=== PATIENT | female | born 1995 | race Caucasian/White ===

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

== ENCOUNTER 2017-07-11 03:56 | Emergency (ER) | payer BC ==
[2017-07-11 04:02] VITALS: RESP 18
--- NOTE | 2017-07-11 04:17 | ED ---
General Adult HPI - General Chief complaint: Abdominal Pain Stated complaint: complications-9 wks Time Seen by Provider: 07/11/17 04:06 Source: patient, family, RN notes reviewed Mode of arrival: ambulatory Limitations: no limitations - History of Present Illness Initial comments: Patient is a pleasant 22-year-old female presenting to the emergency department with pelvic cramping. Onset was around 2 AM. Symptoms have been waxing and waning. Discomfort is mild at this time. There is some radiation towards the back. Patient is approximately 9 weeks gravid. No vaginal discharge or vaginal bleeding. 1 para 0. No urinary symptoms. No vomiting. No fever. - Related Data Home Medications Medication Instructions Recorded Confirmed No Known Home Medications [No 07/11/17 07/11/17 Known Home Medications] Allergies Allergy/AdvReac Type Severity Reaction Status Date / Time No Known Allergies Allergy Verified 07/11/17 04:02 Review of Systems ROS Statement: Those systems with pertinent positive or pertinent negative responses have been documented in the HPI. ROS Other: All systems not noted in ROS Statement are negative. Constitutional: Denies: fever Eyes: Denies: eye pain ENT: Denies: ear pain Respiratory: Denies: cough Cardiovascular: Denies: chest pain Endocrine: Denies: fatigue Gastrointestinal: Reports: abdominal pain (Pelvic pain) Genitourinary: Denies: dysuria Musculoskeletal: Denies: back pain Skin: Denies: rash Past Medical History Past Medical History: No Reported History Additional Past Medical History / Comment(s): ovarian cysts History of Any Multi-Drug Resistant Organisms: None Reported Past Surgical History: No Surgical Hx Reported Past Psychological History: No Psychological Hx Reported Smoking Status: Current every day smoker Past Alcohol Use History: Occasional Past Drug Use History: None Reported General Exam Limitations: no limitations General appearance: alert, in no apparent distress Head exam: Present: atraumatic Eye exam: Present: normal appearance Neck exam: Present: normal inspection Respiratory exam: Present: normal lung sounds bilaterally Cardiovascular Exam: Present: regular rate, normal rhythm Expanded Peripheral pulses: 2+: Dorsalis Pedis (R), Dorsalis Pedis (L) GI/Abdominal exam: Present: soft. Absent: tenderness External exam: Present: normal external exam (RN Zoie is present.) Speculum exam: Present: cervical discharge (Mild white discharge) By manual exam: Present: normal by manual exam. Absent: cervical motion tenderness, adnexal tenderness, adnexal mass Extremities exam: Present: normal inspection. Absent: pedal edema, calf tenderness Neurological exam: Present: alert Psychiatric exam: Present: normal affect, normal mood Skin exam: Present: normal color Course Vital Signs 07/11/17 03:58 Temperature 97.8 F Pulse Rate 87 Respiratory 18 Rate Blood Pressure 117/87 O2 Sat by Pulse 100 Oximetry Medical Decision Making - Medical Decision Making Patient reevaluated and updated. - Lab Data Result diagrams: 07/11/17 04:48 07/11/17 04:48 Lab Results 07/11/17 07/11/17 07/11/17 Range/Units 04:48 04:48 04:48 WBC 9.8 (4.0-11.0) k/uL RBC 4.25 (3.80-5.40) m/uL Hgb 12.6 (11.4-16.0) gm/dL Hct 38.6 (34.0-46.0) % MCV 90.7 (80.0-100.0) fL MCH 29.6 (25.0-35.0) pg MCHC 32.6 (31.0-37.0) g/dL RDW 13.1 (11.5-15.5) % Plt Count 216 (150-450) k/uL Neutrophils % 66 % Lymphocytes % 25 % Monocytes % 5 % Eosinophils % 2 % Basophils % 1 % Neutrophils # 6.5 (1.3-7.7) k/uL Lymphocytes # 2.5 (1.0-4.8) k/uL Monocytes # 0.4 (0-1.0) k/uL Eosinophils # 0.2 (0-0.7) k/uL Basophils # 0.1 (0-0.2) k/uL PT (9.0-12.0) sec INR (<1.2) APTT (22.0-30.0) sec Sodium 140 (137-145) mmol/L Potassium 3.6 (3.5-5.1) mmol/L Chloride 106 (98-107) mmol/L Carbon Dioxide 22 (22-30) mmol/L Anion Gap 12 mmol/L BUN 7 (7-17) mg/dL Creatinine 0.70 (0.52-1.04) mg/dL Est GFR (MDRD) Af Amer >60 (>60 ml/min/1.73 sqM) Est GFR (MDRD) Non-Af >60 (>60 ml/min/1.73 sqM) Glucose 88 (74-99) mg/dL Calcium 9.9 (8.4-10.2) mg/dL Total Bilirubin 0.9 (0.2-1.3) mg/dL AST 19 (14-36) U/L ALT 29 (9-52) U/L Alkaline Phosphatase 61 (38-126) U/L Total Protein 7.3 (6.3-8.2) g/dL Albumin 4.5 (3.5-5.0) g/dL Trichomonas Ag (Rapid) (Negative) Blood Type O Positive Blood Type Recheck No 07/11/17 07/11/17 Range/Units 04:48 04:48 WBC (4.0-11.0) k/uL RBC (3.80-5.40) m/uL Hgb (11.4-16.0) gm/dL Hct (34.0-46.0) % MCV (80.0-100.0) fL MCH (25.0-35.0) pg MCHC (31.0-37.0) g/dL RDW (11.5-15.5) % Plt Count (150-450) k/uL Neutrophils % % Lymphocytes % % Monocytes % % Eosinophils % % Basophils % % Neutrophils # (1.3-7.7) k/uL Lymphocytes # (1.0-4.8) k/uL Monocytes # (0-1.0) k/uL Eosinophils # (0-0.7) k/uL Basophils # (0-0.2) k/uL PT 9.9 (9.0-12.0) sec INR 1.0 (<1.2) APTT 23.6 (22.0-30.0) sec Sodium (137-145) mmol/L Potassium (3.5-5.1) mmol/L Chloride (98-107) mmol/L Carbon Dioxide (22-30) mmol/L Anion Gap mmol/L BUN (7-17) mg/dL Creatinine (0.52-1.04) mg/dL Est GFR (MDRD) Af Amer (>60 ml/min/1.73 sqM) Est GFR (MDRD) Non-Af (>60 ml/min/1.73 sqM) Glucose (74-99) mg/dL Calcium (8.4-10.2) mg/dL Total Bilirubin (0.2-1.3) mg/dL AST (14-36) U/L ALT (9-52) U/L Alkaline Phosphatase (38-126) U/L Total Protein (6.3-8.2) g/dL Albumin (3.5-5.0) g/dL Trichomonas Ag (Rapid) Negative (Negative) Blood Type Blood Type Recheck - Radiology Data Radiology results: image reviewed (Ultrasound shows single live IUP. 17 weeks 1 day. Heart rate 151.) Disposition Clinical Impression: Threatened miscarriage Disposition: HOME SELF-CARE Condition: Stable Instructions: Threatened Miscarriage (ED) Additional Instructions: Please follow-up with your PROBATION SUPERVISOR in the next day or 2 for recheck. Please also follow-up with primary care physician. Return for increased pain, bleeding , worsening symptoms or other concerns. Referrals: Keli Aguilar MD [Primary Care Provider] - 1-2 days Lisha Escudero DO [Doctor of Osteopathic Medicine] - 1-2 days Time of Disposition: 06:20
[2017-07-11 05:09] LABS: Basophils # (A) 0.1 k/uL (0-0.2); Basophils % (A) 1 %; Eosinophils # (A) 0.2 k/uL (0-0.7); Eosinophils % (A) 2 %; HCT 38.6 % (34.0-46.0); HGB 12.6 gm/dL (11.4-16.0); Lymphocytes # (A) 2.5 k/uL (1.0-4.8); Lymphocytes % (A) 25 %; MCH 29.6 pg (25.0-35.0); MCHC 32.6 g/dL (31.0-37.0); MCV 90.7 fL (80.0-100.0); Mean Platelet Volume 8.3; Monocytes # (A) 0.4 k/uL (0-1.0); Monocytes % (A) 5 %; Neutrophils # (A) 6.5 k/uL (1.3-7.7); Neutrophils % (A) 66 %; Platelet Count 216 k/uL (150-450); RBC 4.25 m/uL (3.80-5.40); RDW 13.1 % (11.5-15.5); WBC 9.8 k/uL (4.0-11.0)
[2017-07-11 05:17] LABS: Partial Thromboplastin Time 23.6 sec (22.0-30.0); Prothrombin Time 9.9 sec (9.0-12.0)
[2017-07-11 05:22] LABS: ALT 29 U/L (9-52); AST 19 U/L (14-36); Albumin 4.5 g/dL (3.5-5.0); Alkaline Phosphatase 61 U/L (38-126); Anion Gap 12 mmol/L; Blood Urea Nitrogen 7 mg/dL (7-17); Calcium 9.9 mg/dL (8.4-10.2); Carbon Dioxide 22 mmol/L (22-30); Chloride 106 mmol/L (98-107); Glucose 88 mg/dL (74-99); Potassium 3.6 mmol/L (3.5-5.1); Sodium 140 mmol/L (137-145); Total Bilirubin 0.9 mg/dL (0.2-1.3); Total Protein 7.3 g/dL (6.3-8.2)
--- NOTE | 2017-07-11 06:04 | US ---
EXAM: US Ob/Endovag CLINICAL HISTORY: Reason: pain TECHNIQUE: Real-time ultrasound of the ob/endovag with image documentation. COMPARISON: No relevant prior studies available. FINDINGS: Single live IUP. [place]-rump length corresponds to EGA 7 weeks 1 day. heart rate 151 BPM Suspected corpus luteal cyst left ovary. Small ovarian follicles. No pelvic free fluid is seen. IMPRESSION: Single live IUP, as above.
[2017-07-11 06:45] VITALS: BP 120/56; PULSE 81; TEMP 98.7
[2017-07-12 15:47] LABS: Chlamydia trachomatis rRNA Not detected (Not detected); Neisseria gonorrhoeae rRNA Not detected (Not detected)
== END 2017-07-11 06:45 | disposition home or self-care (01) ==
LOC: EC 03:56
DX: O20.0 Threatened abortion (principal); O99.331 Smoking (tobacco) complicating pregnancy, first trimester; F17.200 Nicotine dependence, unspecified, uncomplicated; Z3A.09 9 weeks gestation of pregnancy
CPT/HCPCS: 36415; 76801; 76817; 80053; 84702; 85025; 85610; 85730; 86900; 86901; 87070; 87205; 87491; 87591; 87808; 99284

== ENCOUNTER 2018-02-12 15:54 | Inpatient (IN) | payer BC ==
--- NOTE | 2018-02-12 17:33 | US ---
EXAMINATION TYPE: US OB >= 14 wk fetus DATE OF EXAM: 02/12/2018 COMPARISON: None CLINICAL HISTORY: Fall; patient fell and landed on the abdomen. TECHNIQUE: Transabdominal (TA) GESTATIONAL AGE / DATING Physician Established: (38 weeks/1 days) EDC: 02/25/2018 Dates by Current Scan: (36 weeks/0 days) EDC: 03/12/2018 SURVEY IUP: Single PLACENTA: Fundal/Posterior PREVIA: No Previa RANJEET: 14.7 cm Normal Amniotic fluid volume appropriate. Mild debris noted within amniotic fluid. CERVICAL LENGTH (transabdominal: norm > 3.0cm): 3.2 cm BIOMETRY PRESENTATION: Breech LIE: Longitudinal BPD: 8.9 cm 36 weeks / 1 days HC: 32.5 cm 36 weeks / 6 days AC: 33.2 cm 37 weeks / 1 days FL: 7.0 cm 35 weeks / 5 days ESTIMATED WEIGHT IN GRAMS: 3985 grams ESTIMATED WEIGHT IN LBS/OZ: 6 lbs. 9 oz. WEIGHT PERCENTAGE BASED ON ESTABLISHED DATES: 25.0% HC/AC: 1.0 Normal FL/AC: 20.9 Normal HEART RATE: 157 bpm RHYTHM: Normal IMPRESSION: SINGLE LIVE IUP MEASURING 36 WEEKS 0 DAYS.
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
[2018-02-12 18:22] VITALS: BMI 27.1
[2018-02-12] MEDS: LACTATED RINGERS 1,000 ML IV SCH (22:38)
[2018-02-12] MEDS: ACETAMINOPHEN TAB 325 MG TAB PO PRN (22:51)
[2018-02-13] MEDS: LACTATED RINGERS 1,000 ML IV SCH (00:04)
[2018-02-13 01:33] LABS: Basophils % (A) 0 %; Eosinophils # (A) 0.2 k/uL (0-0.7); Eosinophils % (A) 1 %; HCT 37.8 % (34.0-46.0); HGB 12.6 gm/dL (11.4-16.0); Lymphocytes # (A) 1.8 k/uL (1.0-4.8); Lymphocytes % (A) 14 %; MCH 29.7 pg (25.0-35.0); MCHC 33.3 g/dL (31.0-37.0); MCV 89.2 fL (80.0-100.0); Mean Platelet Volume 9.4; Monocytes # (A) 0.7 k/uL (0-1.0); Monocytes % (A) 5 %; Neutrophils # (A) 9.9 k/uL (1.3-7.7); Neutrophils % (A) 78 %; Platelet Count 189 k/uL (150-450); RBC 4.24 m/uL (3.80-5.40); RDW 12.8 % (11.5-15.5); WBC 12.6 k/uL (3.8-10.6)
[2018-02-13] MEDS: ACETAMINOPHEN TAB 325 MG TAB PO PRN (04:51)
--- NOTE | 2018-02-13 06:07 | P.PN ---
Progress Note - Text Progress Note Date: 02/13/18 Patient had a reactive heart rate tracings overnight over had 1 episode of a bradycardic episode approximately 1 hour ago and then most recently had another episode. At this time heart tones are reactive. Plan at this time is to continue close observation and most likely will proceed with induction of labor this morning. Patient does understand that if the baby were to have recurrent episodes of bradycardia during labor she would require section for delivery.
[2018-02-13] MEDS ORDERED: TERBUTALINE 1 MG/ML VIAL SQ PRN (07:25)
[2018-02-13] MEDS ORDERED: CARBOPROST TROMETHAMINE 250 MCG/ML 1 ML AMP IM PRN (07:25)
[2018-02-13] MEDS ORDERED: METHYLERGONOVINE 0.2 MG/ML 1 ML AMP IM PRN (07:25)
[2018-02-13] MEDS ORDERED: LIDOCAINE 1% (PF) 10 MG/ML (30 ML SDV) SQ PRN (07:25)
[2018-02-13] MEDS ORDERED: OXYTOCIN 10 UNIT/ML 1 ML VIAL IM PRN (07:25)
[2018-02-13] MEDS ORDERED: OXYTOCIN 20 UNITS/1000 ML NS 1,000 ML IV SCH ×2 (07:30→11:47)
[2018-02-13] MEDS ORDERED: ceFAZolin IN SWFI 2 GM/20 ML SYRINGE IVP STA (08:47)
[2018-02-13] MEDS ORDERED: CITRIC ACID-SODIUM CITRATE 15 ML CUP PO ONE (08:47)
[2018-02-13] MEDS ORDERED: OXYTOCIN 10 UNIT/ML 1 ML VIAL ONE (08:49)
[2018-02-13] MEDS ORDERED: MORPHINE SULFATE (PF) 0.3 MG/0.3 ML SYR ONE (08:49)
[2018-02-13] MEDS ORDERED: DEXAMETHASONE SOD PHOS (MDV) 100 MG/10 ML VIAL ONE (08:49)
[2018-02-13] MEDS ORDERED: KETOROLAC 30 MG/ML 1 ML VIAL ONE (08:49)
[2018-02-13] MEDS ORDERED: HYDROmorphone (PF) 1 MG/ML ONE (08:49)
[2018-02-13] MEDS ORDERED: ONDANSETRON 4 MG/2 ML VIAL ONE (08:49)
[2018-02-13] MEDS ORDERED: NALBUPHINE 10 MG/ML VIAL (10ML MDV) ONE (08:49)
[2018-02-13] MEDS ORDERED: ONDANSETRON 4 MG/2 ML VIAL IVP PRN ×2 (09:10→11:47)
[2018-02-13] MEDS ORDERED: diphenhydrAMINE 50 MG/ML 1 ML VIAL IVP PRN ×3 (09:10→11:47)
[2018-02-13] MEDS ORDERED: NALOXONE 0.4 MG/ML 1 ML VIAL IV PRN ×2 (09:10→11:47)
[2018-02-13] MEDS ORDERED: MORPHINE SULFATE 4 MG/ML SYRINGE IVP PRN (09:10)
--- NOTE | 2018-02-13 09:26 | P.OP ---
Date of Procedure: 02/13/18 Preoperative Diagnosis: 1. Intrauterine at 38-2/7 weeks. 2. Nonreassuring heart tones. 3. Status post fall. Postoperative Diagnosis: Same Procedure(s) Performed: Primary low transverse section Anesthesia: spinal (Duramorph) Surgeon: Lisha Escudero Electronics Warfare Technician #1: Navin Beal Estimated Blood Loss (ml): 500 Pathology: other (Placenta) Condition: stable Disposition: floor Indications for Procedure: This is a 23-year-old female 1 para 0 at 38-2/7 weeks who presented to labor and delivery last evening after a fall at home. She hit directly on her abdomen. While in triage she was noted to have a deceleration. Ultrasound was performed and no abnormalities were visualized. She was admitted for prolonged monitoring. She did have one further deceleration that lasted about 2 minutes early this morning and then another one lasting about 5 minutes at approximate 6 AM. heart tones did return to normal and the decision was made to proceed with induction of labor. Oxytocin was started but water was not broken yet. She then had another spontaneous deceleration lasting about 2 minutes. At this point in time the oxytocin was stopped and the decision was made to proceed with primary section due to nonreassuring heart tones. I have discussed the risks, benefits, and alternative therapies for the above- mentioned procedure and for both sedation/anesthesia as well as necessary blood products administration, if indicated, as they pertain to this patient. The patient has indicated her understanding and acceptance of the risks and procedures discussed. Operative Findings: A viable male infant is noted in the occiput anterior lie with scores of 8 at 1 minute and 9 at 5 minutes and infant weight of 7 lbs. 3 oz. Normal uterus tubes and ovaries are noted. No abnormalities were visualized on the placenta. Description of Procedure: The patient is taken to the operating room where she is placed in the dorsal supine position with leftward tilt after spinal Duramorph anesthesia is given. She is prepped and draped in the normal sterile fashion. Skin was tested and found to be adequately anesthetized. A Pfannenstiel skin incision was made with a scalpel. A second knife was used to carry the incision down to the underlying layer of fascia. The fascia was nicked in the midline with a scalpel and then extended laterally bilaterally with Saunders scissors. The anterior lip of the fascia was grasped with 2 Augustin clamps and then dissected off the underlying rectus muscle in the midline with Saunders scissors. The inferior aspect of the fascial incision was grasped with 2 Augustin clamps and dissected off the underlying rectus muscle and the midline with Saunders scissors. Next the peritoneum layer was tented up with 2 hemostats and then entered sharply with the scalpel. The incision is extended superiorly and inferiorly with Metzenbaum scissors. Next a DeLee retractor is placed. The vesicouterine peritoneum is entered sharply with Metzenbaum scissors and extended laterally bilaterally with Metzenbaum scissors and then the bladder flap is pushed inferiorly. The lower uterine segment is incised in transverse fashion with the scalpel and then bluntly entered with a hemostat. Clear fluid is noted. The incision was then extended laterally bilaterally with 2 fingers. Next the 's head is delivered through the incision. Nose and mouth are bulb suctioned. The remainder of the is easily delivered and placed on mother 's abdomen. Cord is clamped and cut. is taken to warmer by nursing staff. Uterine fundus is gently massaged and placenta is delivered manually. Uterus is exteriorized and cleared of all clots and debris. Uterine incision is closed with 0 Vicryl suture in a running locked fashion. A second layer of 0 Vicryl suture is used in a running fashion for hemostasis. Once adequate hemostasis as assured, the vesicouterine peritoneum is reapproximated with 2-0 Vicryl suture in a running fashion. Posterior cul-de-sac is suctioned of all clots and debris. Uterus is returned to the abdomen. Incision is noted to be hemostatic. Peritoneal layer is closed with 0 Vicryl suture in a running fashion. Muscle layer is reapproximated with 0 Vicryl suture in interrupted fashion. Fascia layer is then closed with 0 PDS suture with 2 sutures meeting in the midline and the knots buried in either side and in the midline. The subcutaneous tissue was then closed with 2-0 Vicryl suture. Skin layer was then closed with bebe. All sponge and needle counts are correct. The patient is taken to recovery room in stable condition.
[2018-02-13] MEDS ORDERED: SIMETHICONE 80 MG CHEWABLE PO PRN (11:47)
[2018-02-13] MEDS ORDERED: HYDROcodone/APAP 5-325MG 1 EACH TAB PO PRN (11:47)
[2018-02-13] MEDS ORDERED: HYDROcodone/APAP 7.5-325MG 1 EACH TAB PO PRN (11:47)
[2018-02-13] MEDS ORDERED: diphenhydrAMINE 50 MG CAP PO PRN (11:47)
[2018-02-13] MEDS ORDERED: ZOLPIDEM 5 MG TAB PO PRN (11:47)
[2018-02-13] MEDS ORDERED: LACTATED RINGERS 1,000 ML IV SCH (11:47)
[2018-02-13] MEDS ORDERED: diphenhydrAMINE 25 MG CAP PO PRN (11:47)
[2018-02-13] MEDS ORDERED: METOCLOPRAMIDE 5 MG/ML 2 ML VIAL IVP PRN (11:47)
[2018-02-13] MEDS: KETOROLAC 30 MG/ML 1 ML VIAL IVP PRN (20:35)
[2018-02-13] MEDS: SENNOSIDES-DOCUSATE SODIUM 1 EACH TAB PO SCH (20:36)
[2018-02-14] MEDS: KETOROLAC 30 MG/ML 1 ML VIAL IVP PRN (04:16)
[2018-02-14 06:11] LABS: Basophils % (A) 0 %; Eosinophils # (A) 0.1 k/uL (0-0.7); Eosinophils % (A) 1 %; HCT 30.9 % (34.0-46.0); HGB 10.2 gm/dL (11.4-16.0); Lymphocytes # (A) 2.1 k/uL (1.0-4.8); Lymphocytes % (A) 15 %; MCH 29.6 pg (25.0-35.0); MCHC 33.2 g/dL (31.0-37.0); MCV 89.3 fL (80.0-100.0); Mean Platelet Volume 8.2; Monocytes # (A) 0.6 k/uL (0-1.0); Monocytes % (A) 5 %; Neutrophils # (A) 11.2 k/uL (1.3-7.7); Neutrophils % (A) 79 %; Platelet Count 144 k/uL (150-450); RBC 3.46 m/uL (3.80-5.40); RDW 12.8 % (11.5-15.5); WBC 14.2 k/uL (3.8-10.6)
--- NOTE | 2018-02-14 06:49 | P.PN ---
Progress Note - Text Progress Note Date: 02/14/18 23-year-old female status post section with Duramorph spinal. Patient doing well no complications. Ambulating well. No motor/sensory deficits. VAS is 2/10. No pruritus
[2018-02-14] MEDS: SENNOSIDES-DOCUSATE SODIUM 1 EACH TAB PO SCH ×2 (08:05→20:21)
--- NOTE | 2018-02-14 08:37 | P.PNOBGPC ---
Subjective - Subjective Principal diagnosis: Status post primary section postoperative day #1 Interval history: Patient is doing well. She is an bleeding. She is passing flatus but no bowel movement yet. Pain is well-controlled. Lochia is decreasing. She is bottle feeding. Patient reports: Reports appetite normal, Reports voiding normally, Reports pain well controlled, Reports ambulating normally : doing well, bottle feeding Objective - Vital Signs Latest vital signs: Vital Signs Temp Pulse Resp BP Pulse Ox 02/14/18 06:00 14 02/14/18 05:00 97 02/14/18 04:00 98.1 F 68 14 104/58 95 02/14/18 02:00 14 02/14/18 01:00 97 02/14/18 00:00 98.2 F 72 16 99/54 97 02/13/18 22:00 16 02/13/18 21:00 96 02/13/18 20:00 98.2 F 66 16 111/57 96 02/13/18 18:00 16 02/13/18 17:00 98 02/13/18 16:45 97.5 F L 72 16 115/62 98 02/13/18 13:58 98.2 F 72 16 115/70 98 02/13/18 11:47 80 16 110/64 02/13/18 11:17 65 16 115/62 97 02/13/18 10:45 97.0 F L 64 16 107/61 02/13/18 10:32 77 16 107/56 98 02/13/18 10:17 72 16 102/51 98 02/13/18 10:10 16 98 02/13/18 10:02 70 16 114/64 97 02/13/18 09:47 98.3 F 61 16 112/62 98 Intake and Output 02/13/18 02/14/18 02/14/18 22:59 06:59 14:59 Output Total 4150 Balance -4150 Output: Urine 4150 Other: # Voids 1 1 - Exam Extremities: Present: normal Abdomen: Present: normal appearance, soft (Positive bowel sounds 4). Absent: distention, tenderness Incision: Present: normal, dry, intact Uterus: Present: normal, firm. Absent: tenderness - Labs Labs: Abnormal Lab Results - Last 24 Hours (Table) 02/14/18 Range/Units 05:22 WBC 14.2 H (3.8-10.6) k/uL RBC 3.46 L (3.80-5.40) m/uL Hgb 10.2 L (11.4-16.0) gm/dL Hct 30.9 L (34.0-46.0) % Plt Count 144 L (150-450) k/uL Neutrophils # 11.2 H (1.3-7.7) k/uL Assessment and Plan Assessment: Status post primary low transverse section postoperative day #1 Plan: Continue with postoperative care today. Anticipate probable discharge home tomorrow.
[2018-02-14] MEDS ORDERED: MEASLES-MUMPS-RUBELLA VACC/PF 12,500 UNIT/0.5 ML VIAL SQ ONE (10:37)
[2018-02-14] MEDS: IBUPROFEN 600 MG TAB PO PRN ×3 (12:03→23:49)
[2018-02-14] MEDS: ACETAMINOPHEN TAB 325 MG TAB PO PRN (20:22)
[2018-02-15] MEDS: ACETAMINOPHEN TAB 325 MG TAB PO PRN (04:01)
[2018-02-15] MEDS: SENNOSIDES-DOCUSATE SODIUM 1 EACH TAB PO SCH (08:46)
[2018-02-15 11:02] VITALS: BP 120/65; PULSE 81; RESP 18; TEMP 98.3
--- NOTE | 2018-02-15 11:38 | P.DS ---
Providers Date of admission: 02/13/18 06:40 Expected date of discharge: 02/15/18 Attending physician: Lisha Escudero Primary care physician: Stated None Hospital Course: This is a 23-year-old female 1 para 0 who presented at 38 and one sevenths weeks after a fall and hit to her abdomen. She was monitored overnight and was found to have some spontaneous decelerations. Therefore she began induction of labor and shortly after the oxytocin was started she began having more decelerations and the decision was made to proceed with section. She underwent a primary low transverse section on 02/13/2018 and delivered a viable male with scores of 8 at 1 minute and 9 at 5 minutes and weight of 7 lbs. 3 oz. Her course was uncomplicated. Lochia is decreasing. Pain is fairly well controlled with ibuprofen and Viola. She is bottle feeding. She is passing flatus and bowel movement. Vital signs are stable. Abdomen is soft with fundus firm and nontender. Positive bowel sounds 4 are noted. Incision is clean dry and intact. Extremities show negative Homans. Impression is status post primary section postoperative day #2. Plan is to discharge home today. She will be given a prescription for ibuprofen and a 3 day supply of Viola. She will sign the start narcotic form. She is advised to follow up in the office in approximately 1 week for a postoperative check and in 6 weeks for a check. She is advised to call the office if she has any further questions or concerns prior to her next appointment time. Procedures: Oxytocin induction of labor Primary low transverse section for delivery of a viable male infant on 02/13/2018 Patient Condition at Discharge: Stable Plan - Discharge Summary New Discharge Prescriptions: New HYDROcodone/APAP 5-325MG [Viola 5-325] 1 each PO Q4HR PRN #18 tab PRN Reason: Moderate Pain Ibuprofen [Motrin] 600 mg PO Q6HR PRN #60 tab PRN Reason: Mild Pain Or Fever >= 100.5 Continue Pnv No.95/Ferrous Fum/Folic AC [ Multivitamin Tablet] 1 each PO DAILY No Action Ferrous Sulfate [Slow Fe] 142 mg PO DAILY Discharge Medication List Ferrous Sulfate [Slow Fe] 142 mg PO DAILY 02/12/18 [History] Pnv No.95/Ferrous Fum/Folic AC [ Multivitamin Tablet] 1 each PO DAILY [History] HYDROcodone/APAP 5-325MG [Viola 5-325] 1 each PO Q4HR PRN #18 tab 02/15/18 [Rx] Ibuprofen [Motrin] 600 mg PO Q6HR PRN #60 tab 02/15/18 [Rx] Follow up Appointment(s)/Referral(s): Lisha Escudero DO [Doctor of Osteopathic Medicine] - 1 Week Activity/Diet/Wound Care/Special Instructions: Instructions 1. Do not begin any exercise program for 3 weeks. 2. Do not resume sexual relations for 3 weeks or longer if uncomfortable. 3. You may take tub baths or showers at any time. 4. You may use tampons if desired after 3 weeks. 5. Keep the area of episiotomy (stitches) clean and dry. 6. If you are not nursing, wear a good fitting, supportive bra during the day and limit fluid intake for at least 1 week to prevent breast engorgement. 7. Call the office, [phone], within the next week to make appointment for your 6 week checkup if it has not already been made. 8. Report any of the following occurrences to the doctor promptly: a. Heavy, excessive bleeding b. Chills, fever c. Burning or frequency of urination d. Pain or redness and breasts if nursing e. Increasing pain or swelling in episiotomy (stitches). In addition to the above instructions, the following additional should be followed: 1. No heavy lifting or straining (exercising) until after 6 week checkup. 2. Keep abdominal incision clean and dry: You may wear a dressing if more comfortable. 3. Make office appointment for 10 days after going home or as instructed by her doctor. Discharge Disposition: HOME SELF-CARE
[2018-02-15] MEDS: IBUPROFEN 600 MG TAB PO PRN (13:35)
== END 2018-02-15 14:15 | disposition home or self-care (01) | DRG 766 ==
LOC: FBPOP 15:54 → 4FBP 17:05 → OBSVTOIN 02-13 06:40
PROVIDERS: ADMIT Obstetrics & Gynecology; ATTEND Obstetrics & Gynecology
PROC: 3E033VJ Introduction of Other Hormone into Peripheral Vein, Percutaneous Approach (ICD-10-PCS; principal; 2018-02-13 08:50)
PROC: 10D00Z1 Extraction of Products of Conception, Low, Open Approach (ICD-10-PCS; principal; 2018-02-13 08:50)
DX: O76 Abnormality in fetal heart rate and rhythm complicating labor and delivery (principal); W01.0XXA Fall on same level from slipping, tripping and stumbling without subsequent striking against object, initial encounter; Y92.009 Unspecified place in unspecified non-institutional (private) residence as the place of occurrence of the external cause; Z3A.38 38 weeks gestation of pregnancy; Z87.891 Personal history of nicotine dependence; Z37.0 Single live birth
CPT/HCPCS: 59025; 76805; 85025; 86850; 86900; 86901; 87340; 88307; 90707; 99215

== ENCOUNTER 2018-07-19 15:55 | Emergency (ER) | payer BC ==
[2018-07-20 04:00] LABS: Appearance,Urine Clear (Clear); Bacteria,Urine Occasional /hpf; Bilirubin,Urine Negative (Negative); Blood,Urine Negative (Negative); Color,Urine Yellow; Glucose,Urine (UA) Negative (Negative); Ketones,Urine Negative (Negative); Leukocyte Esterase,Urine Moderate (Negative); Mucus,Urine Occasional /hpf; Nitrite,Urine Negative (Negative); PH, Urine 5.5 (5.0-8.0); Protein,Urine Trace (Negative); RBC,Urine 4 /hpf (0-5); Specific Gravity,Urine 1.026 (1.001-1.035); Squamous Epithelial Cell,Urine 2 /hpf (0-4); Urobilinogen,Urine <2.0 mg/dL (<2.0); WBC,Urine 2 /hpf (0-5)
[2018-07-20 07:03] LABS: Basophils # (A) 0.1 k/uL (0-0.2); Basophils % (A) 0 %; Eosinophils # (A) 0.2 k/uL (0-0.7); Eosinophils % (A) 1 %; HCT 37.4 % (34.0-46.0); HGB 12.4 gm/dL (11.4-16.0); Lymphocytes # (A) 2.2 k/uL (1.0-4.8); Lymphocytes % (A) 18 %; MCH 30.1 pg (25.0-35.0); MCHC 33.3 g/dL (31.0-37.0); MCV 90.3 fL (80.0-100.0); Monocytes # (A) 0.4 k/uL (0-1.0); Monocytes % (A) 3 %; Neutrophils % (A) 75 %; Platelet Count 208 k/uL (150-450); RBC 4.14 m/uL (3.80-5.40); RDW 12.5 % (11.5-15.5); WBC 11.9 k/uL (3.8-10.6)
--- NOTE | 2018-07-20 10:12 | US ---
EXAMINATION TYPE: US abdomen APPY DATE OF EXAM: 07/19/2018 COMPARISON: NONE CLINICAL HISTORY: 23-year-old female right lower quadrant pain for 2 days and elevated WBC. 6 weeks p regnant. APPENDIX Cylindrical structure adjacent to the iliac vessels. This appears hypoechoic and is noncompressible b ut measures only 6 to 7 mm in caliber which is upper limits of normal to borderline thickened if this represents the appendix. Is the appendix seen in its entirety from the proximal cecum to distal end- no Is the appendix compressible- No Does the appendix wall appear hypervascular- Some anterior wall vascularity present Is an appendicolith present- No Is there inflammatory changes or free fluid present- No evidence of free fluid IMPRESSION: A structure which may represent a segment of appendix is seen overlying the iliac vessels measuring 6 to 7 mm thick. If this represents the appendix, this would only be upper normal to borderline thicke kaz. Overall, the exam is equivocal for acute appendicitis and further clinical correlation is requir ed.
--- NOTE | 2018-07-20 10:13 | US ---
EXAMINATION TYPE: OB FIRST TRIMESTER DATE OF EXAM: 07/19/2018 COMPARISON: None HISTORY: 23-year-old female pelvic pain, more on right side x 2 days. Date of LMP: 06/01/2018 EXAM PERFORMED: transabdominal (TA) FINDINGS: EXAM MEASUREMENTS: GESTATIONAL AGE / DATING Physician Established: Not yet established Dates by LMP: (6wks/6 days) EDC: 03/08/2019 Dates by First Scan: No Prior Dates by Current Scan: (6wks/1days +/- 4 days) EDC: 03/13/2019 MATERNAL ANATOMY Uterus: 8.7 x 5.7 x 6.9 cm Right Ovary: 3.5 x 2.4 x 2.1 cm Left Ovary: 2.9 x 1.8 x 1.8 cm Post CDS / Adnexa: Small amount of free fluid within right adnexa Presence of corpus luteal cyst: Right Ovary= 2.1 x 1.9 x 1.7 cm GESTATION / SURVEY IUP: Single CRL: 0.4 cm (6wks/1days) MSD: wnl Yolk Sac (normal less than 6mm): 2mm Heart Rate: 118 bpm Rhythm: Normal> 100 BPM at this gestational age Viable IUP TECH IMPRESSION: Single, viable IUP/corpus luteum right ovary with small amount of free fluid right adnexa IMPRESSION: 1. Single live intrauterine with estimated gestational age of 6 weeks 6 days by LMP. Curren t ultrasound biometry is smaller and just discordant (6 weeks 1 day) by crown-rump length. Correlate for accuracy of recall of LMP. 2. heart rate of 118 BPM is normal at this gestational age. 3. Complete survey recommended at 18-20 weeks. 4. A 2.1 cm hemorrhagic corpus luteum suggested in the right ovary.
[2018-07-20 11:51] LABS: ALT 27 U/L (9-52); AST 14 U/L (14-36); Alkaline Phosphatase 56 U/L (38-126); Anion Gap 6 mmol/L; Blood Urea Nitrogen 13 mg/dL (7-17); Calcium 9.4 mg/dL (8.4-10.2); Carbon Dioxide 24 mmol/L (22-30); Chloride 107 mmol/L (98-107); Glucose 84 mg/dL (74-99); HCG,Quantitative Serum 39825.5 mIU/mL; Potassium 4.2 mmol/L (3.5-5.1); Sodium 137 mmol/L (137-145); Total Protein 6.4 g/dL (6.3-8.2)
[2018-07-22 15:40] LABS: C. trachomatis,PCR Negative (Neg,Equiv); Chlamydia trachomatis Source Urine; N. gonorrhoeae,PCR Negative (Neg,Equiv); Neisseria Source Urine
== END 2018-07-19 22:22 | disposition home or self-care (01) ==
LOC: EC 15:55
DX: O34.81 Maternal care for other abnormalities of pelvic organs, first trimester (principal); N83.11 Corpus luteum cyst of right ovary; O99.112 Other diseases of the blood and blood-forming organs and certain disorders involving the immune mechanism complicating pregnancy, second trimester; D72.829 Elevated white blood cell count, unspecified; Z87.891 Personal history of nicotine dependence; Z98.890 Other specified postprocedural states; Z3A.01 Less than 8 weeks gestation of pregnancy
CPT/HCPCS: 36415; 76705; 76801; 80053; 81001; 84702; 85025; 86850; 86900; 86901; 87491; 87591; 87808; 96361; 96374; 99284

== ENCOUNTER 2019-01-04 17:05 | Outpatient (CLI) | payer BC ==
[2019-01-04] MEDS ORDERED: LACTATED RINGERS 1,000 ML IV SCH (18:00)
[2019-01-04 18:19] VITALS: BP 121/61; PULSE 71; RESP 16; TEMP 98.3
--- NOTE | 2019-01-06 12:41 | P.MSEPDOC ---
Presenting Problems - Arrival Data Date of Arrival on Unit: 01/04/19 Time of Arrival on Unit: 17:05 Mode of Transport: Ambulatory - Complaint OB-Reason for Admission/Chief Complaint: Decreased Movement, Acute Nausea/Vomiting, Pain, Dizziness Comment: contractions, since yesterday at 1600, decrease movement today,light headed, dizzy Medical History - Information : 2 Para: 1 Term: 1 : 0 Abortions: Spontaneous or Elective: 0 Number of Living Children: 1 - Gestational Age Gestational Age by COLEEN (wks/days): 30 Weeks and 2 Days - History Complications: Prior Review of Systems - Review of Systems Constitutional: No problems Breast: No problems ENT: No problems Cardiovascular: No problems Respiratory: No problems Gastrointestinal: No problems Genitourinary: No problems Musculoskeletal: No problems Neurological: Dizziness Skin: No problems Vital Signs - Temperature Temperature: 98.3 F Temperature Source: Oral - Pulse Right Brachial Pulse Rate: 71 Pulse Assessment Method: Automatic Cuff - Respirations Respiratory Rate: 16 Oxygen Delivery Method: Room Air O2 Sat by Pulse Oximetry: 98 - Blood Pressure Right Arm Blood Pressure: 121/61 Blood Pressure Mean: 81 Blood Pressure Source: Automatic Cuff Medical Screen Scoring (Pre) - Cervical Exam Dilation: 0 cm = 0 Membranes: Intact - Uterine Contractions Frequency: N/A Duration: N/A Intensity: N/A - Maternal Vital Signs Maternal Temperature: N/A Maternal Blood Pressure: N/A Signs of Preeclampsia: N/A Maternal Respirations: N/A - Maternal Trauma Maternal Trauma: N/A - Assessment - Baby A Baseline FHR: 140 Heart Rate - NICHD Category: Category I (Normal) = 0 - Total Score - Baby A Total Score - Baby A: 0 - Total Score - Baby B Total Score - Baby B: 0 - Total Score - Baby C Total Score - Baby C: 0 - Level of Risk - Baby A Level of Risk - Baby A: Low (0-5) - Level of Risk - Baby B Level of Risk - Baby B: Low (0-5) - Level of Risk - Baby C Level of Risk - Baby C: Low (0-5) Physician Notification (Pre) - Physician Notified Physician Notified Date: 01/04/19 Physician Notified Time: 17:40 Physician/Practitioner Notifed:: Justyn Spoke With: Justyn New Order Received: Yes - Notification Comment Comment: Dr garcia informed of pt's c/o pain, contractions since yesterday at 1600, decrease movement today, nausea, dzziness and light headed. orders to hydrate pt with one liter of LR Medical Screen Scoring (Post) - Pain Assessment Pain Location and Character: Abdomen Pain Scale Used: Numeric (1 - 10) Pain Intensity: 7 Pain Management Goal: 4 Pain Description: Aching, Cramping Pain Frequency: Intermittent Pain Duration Units: Days Pain Behavior: Vocalization Non-Pharmacological Interventions: Position/Reposition - Assessment - Baby A Heart Rate: 140 Heart Rate - NICHD Category: Category I (Normal) = 0 NST: Reactive Position: Non-vertex & not laboring = 3 - Total Score Total Score - Baby A: 3 - Post Treatment Level of Risk Post Treatment Level of Risk - Baby A: Low (0-5) Physician Notification (Post) - Physician Notified Physician Notified Date: 01/04/19 Physician Notified Time: 18:30 Physician/Practitioner Notified:: Justyn Spoke With: Justyn New Order Received: Yes - Notification Comment Comment: pt may be discharged home Disposition - Disposition OB Disposition: Discharge to home Discharge Date: 01/04/19 Discharge Time: 18:47 I agree with the RN Medical Screening Exam: Yes Risk & Benefit of care provided described in d/c instruction: Yes Diagnosis: DECREASED MOVEMENTS, THIRD TRIMESTER, FETUS 1
== END 2019-01-04 18:47 | disposition home or self-care (01) ==
LOC: FBPOP 17:05
PROVIDERS: ATTEND Obstetrics & Gynecology
DX: O36.8131 Decreased fetal movements, third trimester, fetus 1 (principal); Z3A.30 30 weeks gestation of pregnancy
CPT/HCPCS: 59025; 96360; 96365; 96366; 96367; 99213; 99214

== ENCOUNTER 2019-02-28 18:41 | Outpatient (CLI) | payer BC ==
[2019-02-28 20:25] VITALS: BP 127/60; PULSE 86; RESP 16; TEMP 98.7
--- NOTE | 2019-03-02 07:41 | P.MSEPDOC ---
Presenting Problems - Arrival Data Date of Arrival on Unit: 02/28/19 Time of Arrival on Unit: 18:41 Mode of Transport: Ambulatory - Complaint OB-Reason for Admission/Chief Complaint: Possible Onset of Labor Medical History - Information : 2 Para: 1 Term: 1 : 0 Abortions: Spontaneous or Elective: 0 Number of Living Children: 1 - Gestational Age Gestational Age by COLEEN (wks/days): 38 Weeks and 1 Days - History Complications: Prior Review of Systems - Review of Systems Constitutional: No problems Breast: No problems ENT: No problems Cardiovascular: No problems Respiratory: No problems Gastrointestinal: No problems Genitourinary: No problems Musculoskeletal: No problems Neurological: No problems Skin: No problems Vital Signs - Temperature Temperature: 98.7 F Temperature Source: Oral - Pulse Right Brachial Pulse Rate: 86 Pulse Assessment Method: Automatic Cuff - Respirations Respiratory Rate: 16 Oxygen Delivery Method: Room Air O2 Sat by Pulse Oximetry: 98 - Blood Pressure Right Arm Blood Pressure: 127/60 Blood Pressure Mean: 82 Blood Pressure Source: Automatic Cuff Medical Screen Scoring (Pre) - Cervical Exam Dilation: 1-3 cm = 1 Membranes: Intact - Uterine Contractions Frequency: > 5 minutes apart = 1 Duration: N/A Intensity: N/A - Maternal Vital Signs Maternal Temperature: N/A Maternal Blood Pressure: N/A Signs of Preeclampsia: N/A Maternal Respirations: N/A - Assessment - Baby A Baseline FHR: 125 Heart Rate - NICHD Category: Category I (Normal) = 0 NST: Reactive Position: N/A Station: N/A - Total Score - Baby A Total Score - Baby A: 2 - Total Score - Baby B Total Score - Baby B: 2 - Total Score - Baby C Total Score - Baby C: 2 - Level of Risk - Baby A Level of Risk - Baby A: Low (0-5) - Level of Risk - Baby B Level of Risk - Baby B: Low (0-5) - Level of Risk - Baby C Level of Risk - Baby C: Low (0-5) Physician Notification (Pre) - Physician Notified Physician Notified Date: 02/28/19 Physician Notified Time: 19:20 Physician/Practitioner Notifed:: Dr. Escudero Spoke With: Dr. Escudero New Order Received: Yes - Notification Comment Comment: Dr. Escudero given report on pt in tr. Pt c/o. Pt vs WNL. Reactive NST. Vag exam of. /3. Orders recieved to recheck pt after 1 hr and if no change pt may be discharged. to home. Disposition - Disposition OB Disposition: Discharge to home Discharge Date: 02/28/19 Discharge Time: 20:25 I agree with the RN Medical Screening Exam: Yes Risk & Benefit of care provided described in d/c instruction: Yes Diagnosis: FALSE LABOR AT OR AFTER 37 COMPLETED WEEKS OF GESTATION
== END 2019-02-28 20:25 | disposition home or self-care (01) ==
LOC: FBPOP 18:41
PROVIDERS: ATTEND Obstetrics & Gynecology
DX: O47.1 False labor at or after 37 completed weeks of gestation (principal); Z3A.38 38 weeks gestation of pregnancy
CPT/HCPCS: 59025; 99213

== ENCOUNTER 2019-03-09 06:01 | Inpatient (IN) | payer BC ==
--- NOTE | 2019-03-08 17:22 | P.HPOB ---
History of Present Illness H&P Date: 03/08/19 Chief Complaint: Scheduled repeat section with tubal ligation This is a 24-year-old female 2 para 1 with an estimated date of confinement of 03/13/2019, estimated gestational age of 39-3/7 weeks, who presents for scheduled repeat section with bilateral partial salpingectomy for family planning. She admits to good movement. She denies any rupture of membranes. course has been essentially uncomplicated. She does complain of irregular frequent contractions. labs: Hepatitis B surface antigen-negative RPR-nonreactive Rubella-immune Blood type-O+ Antibody screen-negative Hemoglobin-12.7 Toxoplasma screen-negative Random glucose-62 Obstetrical ultrasound-normal anatomy One hour Glucola-95 Group B streptococcus-negative Obstetrical history: . History of 1 delivery at term by section due to distress. Gynecologic history: No history of sexual transmitted diseases Social history: She is . She works part-time as a head banquet waiter/waitress. Review of Systems Constitutional: Denies chills, Denies fever Eyes: denies blurred vision, denies pain Ears, nose, mouth and throat: Denies headache, Denies sore throat Cardiovascular: Denies chest pain, Denies shortness of breath Respiratory: Denies cough Gastrointestinal: Reports abdominal pain (Irregular contractions) Genitourinary: Reports pelvic pain, Reports Musculoskeletal: Reports low back pain Integumentary: Denies pruritus, Denies rash Neurological: Denies numbness, Denies weakness Past Medical History Past Medical History: No Reported History Additional Past Medical History / Comment(s): hx ovarian cysts History of Any Multi-Drug Resistant Organisms: None Reported Past Surgical History: Section Past Anesthesia/Blood Transfusion Reactions: No Reported Reaction Past Psychological History: No Psychological Hx Reported Smoking Status: Former smoker Past Alcohol Use History: None Reported Past Drug Use History: None Reported - Past Family History Father Family Medical History: No Reported History Medications and Allergies Home Medications Medication Instructions Recorded Confirmed Type Ferrous Sulfate [Slow Fe] 142 mg PO DAILY 02/12/18 03/06/19 History Pnv No.95/Ferrous Fum/Folic AC 1 each PO DAILY 02/12/18 03/06/19 History [ Multivitamin Tablet] Allergies Allergy/AdvReac Type Severity Reaction Status Date / Time No Known Allergies Allergy Verified 03/06/19 14:13 Exam Osteopathic Statement: *. No significant issues noted on an osteopathic structural exam other than those noted in the History and Physical/Consult. HEENT: Within normal limits Heart: Regular rate and rhythm Lungs: Clear to auscultation bilaterally Abdomen: Cervix: 1 cm/70%/-1 station heart tones: 140s Extremities: Negative Homans Assessment and Plan (1) 39 weeks gestation of Status: Acute Code(s): Z3A.39 - 39 WEEKS GESTATION OF SNOMED Code(s): 05650538 (2) Previous delivery affecting Status: Acute Code(s): O34.219 - MATERNAL CARE FOR UNSP TYPE SCAR FROM PREVIOUS DEL SNOMED Code(s): 996225034 (3) Family planning Status: Acute Code(s): Z30.09 - ENCOUNTER FOR OT GENERAL CNSL AND ADVICE ON CONTRACEPTION SNOMED Code(s): 034468759 Plan: Proceed with repeat section with bilateral partial salpingectomy. I have discussed the risks, benefits, and alternative therapies for the above- mentioned procedure and for both sedation/anesthesia as well as necessary blood products administration, if indicated, as they pertain to this patient. The patient has indicated her understanding and acceptance of the risks and procedures discussed.
[2019-03-09] MEDS ORDERED: LIDOCAINE 1% 20 ML VIAL (10MG/ML) FOR IV START INTRADERMA PRN (06:16)
[2019-03-09] MEDS ORDERED: LACTATED RINGERS 1,000 ML IV ONE (06:16)
[2019-03-09] MEDS ORDERED: CITRIC ACID-SODIUM CITRATE 15 ML CUP PO ONE (06:16)
[2019-03-09 06:34] VITALS: BMI 28.7
[2019-03-09 06:50] LABS: Basophils # (A) 0.1 k/uL (0-0.2); Basophils % (A) 0 %; Eosinophils # (A) 0.2 k/uL (0-0.7); Eosinophils % (A) 1 %; HCT 33.4 % (34.0-46.0); HGB 11.3 gm/dL (11.4-16.0); Lymphocytes # (A) 1.6 k/uL (1.0-4.8); Lymphocytes % (A) 12 %; MCH 29.2 pg (25.0-35.0); MCHC 33.7 g/dL (31.0-37.0); MCV 86.6 fL (80.0-100.0); Mean Platelet Volume 7.9; Monocytes # (A) 0.6 k/uL (0-1.0); Monocytes % (A) 4 %; Neutrophils # (A) 11.2 k/uL (1.3-7.7); Neutrophils % (A) 82 %; Platelet Count 184 k/uL (150-450); RBC 3.86 m/uL (3.80-5.40); RDW 14.5 % (11.5-15.5); WBC 13.7 k/uL (3.8-10.6)
[2019-03-09] MEDS ORDERED: ePHEDrine SULFATE/0.9% NACL/PF 50 MG/5 ML SYRINGE IV ONE (07:55)
[2019-03-09] MEDS ORDERED: OXYTOCIN 10 UNIT/ML 1 ML VIAL ONE (07:55)
[2019-03-09] MEDS ORDERED: MORPHINE SULFATE (PF) 0.3 MG/0.3 ML SYR ONE (07:55)
[2019-03-09] MEDS ORDERED: NALBUPHINE 10 MG/ML (1 ML AMP) ONE (07:55)
[2019-03-09] MEDS ORDERED: ONDANSETRON 4 MG/2 ML VIAL ONE (07:55)
[2019-03-09] MEDS ORDERED: WATER FOR INJECTION, STERILE 10 ML VIAL IV ONE (07:55)
--- NOTE | 2019-03-09 08:44 | P.OP ---
Date of Procedure: 03/09/19 Preoperative Diagnosis: 1. Intrauterine at 39-3/7 weeks. 2. Previous section. 3. Family planning. Postoperative Diagnosis: Same Procedure(s) Performed: Repeat low transverse section with bilateral partial salpingectomy Anesthesia: spinal (Duramorph) Surgeon: Lisah Escudero Clerk Specialist #1: Magalis Alejandra Estimated Blood Loss (ml): 400 Pathology: other (Portions of right and left fallopian tubes) Condition: stable Disposition: floor Indications for Procedure: This is a 24-year-old female 2 para 1 at 39-3/7 weeks who presents for scheduled repeat section with bilateral partial salpingectomy for family planning. I have discussed the risks, benefits, and alternative therapies for the above- mentioned procedure and for both sedation/anesthesia as well as necessary blood products administration, if indicated, as they pertain to this patient. The patient has indicated her understanding and acceptance of the risks and procedures discussed. Operative Findings: A viable male infant is noted in the vertex presentation with scores of 9 at 1 minute and 9 at 5 minutes and infant weight of 7 lbs. 8 oz. Normal uterus tubes and ovaries are noted. Description of Procedure: The patient is taken to the operating room where she is placed in the dorsal supine position with leftward tilt after spinal Duramorph anesthesia is given. She is prepped and draped in the normal sterile fashion. Skin was tested and found to be adequately anesthetized. A Pfannenstiel skin incision was made with a scalpel removing the previous laparotomy scar. A second knife was used to carry the incision down to the underlying layer of fascia. The fascia was nicked in the midline with a scalpel and then extended laterally bilaterally with Saunders scissors. The anterior lip of the fascia was grasped with 2 Augustin clamps and then dissected off the underlying rectus muscle in the midline with Saunders scissors. The inferior aspect of the fascial incision was grasped with 2 Augustin clamps and dissected off the underlying rectus muscle and the midline with Saunders scissors. Next the peritoneum layer was tented up with 2 hemostats and then entered sharply with the scalpel. The incision is extended superiorly and inferiorly with Metzenbaum scissors. Next a DeLee retractor is placed. The vesicouterine peritoneum is entered sharply with Metzenbaum scissors and exten ded laterally bilaterally with Metzenbaum scissors and then the bladder flap is pushed inferiorly. The lower uterine segment is incised in transverse fashion with the scalpel and then bluntly entered with a hemostat. Clear fluid is noted. The incision was then extended laterally bilaterally with 2 fingers. Next the infant's head is delivered through the incision. Nose and mouth are bulb suctioned. The remainder of the infant is easily delivered and placed on mother's abdomen. Cord is clamped and cut. Infant is taken to warmer by nursing staff. Uterine fundus is gently massaged and placenta is delivered manually. Uterus is exteriorized and cleared of all clots and debris. Uterine incision is closed with 0 Vicryl suture in a running locked fashion. A second layer of 0 Vicryl suture is used in a running fashion for hemostasis. Once adequate hemostasis as assured, the vesicouterine peritoneum is reapproximated with 2-0 Vicryl suture in a running fashion. Next attention was turned to the tubes. The right fallopian tube was grasped in the midportion with a hemostat. The mesosalpinx was entered with Bovie cautery. Next 0 Vicryl suture was tied 2 times around both the proximal and distal portion of the tube. Next the knuckle of tube was removed with Metzenbaum scissors. The ends of the tubes were then cauterized for hemostasis. Excellent hemostasis was noted. The same procedure was carried out on the left fallopian tube. Posterior cul-de-sac is suctioned of all clots and debris. Uterus is returned to the abdomen. Incision is noted to be hemostatic. Both tubal sites are visualized and appear hemostatic. Peritoneal layer is closed with 0 Vicryl suture in a running fashion. Muscle layer is reapproximated with 0 Vicryl suture in interrupted fashion. Fascia layer is then closed with 0 PDS suture with 2 sutures meeting in the midline and the knots buried in either side and in the midline. The subcutaneous tissue was then closed with 2-0 Vicryl suture. Skin layer was then closed with bebe. All sponge and needle counts are correct. The patient is taken to recovery room in stable condition.
[2019-03-09] MEDS ORDERED: ACETAMINOPHEN TAB 325 MG TAB PO PRN (09:04)
[2019-03-09] MEDS ORDERED: diphenhydrAMINE 25 MG CAP PO PRN (09:04)
[2019-03-09] MEDS ORDERED: ONDANSETRON 4 MG/2 ML VIAL IVP PRN (09:04)
[2019-03-09] MEDS ORDERED: KETOROLAC 30 MG/ML 1 ML VIAL IVP PRN ×2 (09:04→11:26)
[2019-03-09] MEDS ORDERED: HYDROcodone/APAP 5-325MG 1 EACH TAB PO PRN (09:04)
[2019-03-09] MEDS ORDERED: NALOXONE 0.4 MG/ML 1 ML VIAL IV PRN (09:04)
[2019-03-09] MEDS ORDERED: LANOLIN CREAM 5 GM TUBE TOPICAL PRN (09:04)
[2019-03-09] MEDS ORDERED: METOCLOPRAMIDE 5 MG/ML 2 ML VIAL IVP PRN (09:04)
[2019-03-09] MEDS ORDERED: ZOLPIDEM 5 MG TAB PO PRN (09:04)
[2019-03-09] MEDS ORDERED: diphenhydrAMINE 50 MG CAP PO PRN (09:04)
[2019-03-09] MEDS ORDERED: OXYTOCIN 20 UNITS/1000 ML NS 1,000 ML IV SCH (09:04)
[2019-03-09] MEDS ORDERED: diphenhydrAMINE 50 MG/ML 1 ML VIAL IVP PRN ×3 (09:04→11:26)
[2019-03-09] MEDS: LACTATED RINGERS 1,000 ML IV SCH ×4 (10:44→21:10)
[2019-03-09] MEDS ORDERED: NALBUPHINE 10 MG/ML (1 ML AMP) IV PRN (11:26)
[2019-03-09] MEDS ORDERED: HYDROmorphone 1 MG/ML 1 ML SYRINGE IVP PRN (11:26)
[2019-03-09] MEDS: SENNOSIDES-DOCUSATE SODIUM 1 EACH TAB PO SCH ×2 (21:10→23:35)
[2019-03-09] MEDS: IBUPROFEN 600 MG TAB PO PRN (23:35)
--- NOTE | 2019-03-10 06:34 | P.PN ---
Progress Note - Text Progress Note Date: 03/10/19 Pt without complaints. Ambulating w/o weakness or paresthesia. Pain controlled. Pruritis controlled. Denies headache. VSS Back - puncture site clean and dry A/P POD#1 s/p w/ spinal duramorph - doing well
[2019-03-10 07:11] LABS: Basophils % (A) 0 %; Eosinophils # (A) 0.2 k/uL (0-0.7); Eosinophils % (A) 1 %; HCT 31.3 % (34.0-46.0); HGB 10.8 gm/dL (11.4-16.0); Lymphocytes # (A) 1.4 k/uL (1.0-4.8); Lymphocytes % (A) 11 %; MCH 29.8 pg (25.0-35.0); MCHC 34.6 g/dL (31.0-37.0); MCV 86.1 fL (80.0-100.0); Mean Platelet Volume 8.1; Monocytes # (A) 0.6 k/uL (0-1.0); Monocytes % (A) 4 %; Neutrophils # (A) 10.6 k/uL (1.3-7.7); Neutrophils % (A) 82 %; Platelet Count 144 k/uL (150-450); RBC 3.63 m/uL (3.80-5.40); RDW 13.3 % (11.5-15.5); WBC 12.9 k/uL (3.8-10.6)
[2019-03-10] MEDS: IBUPROFEN 600 MG TAB PO PRN ×2 (08:55→16:24)
[2019-03-10] MEDS: SENNOSIDES-DOCUSATE SODIUM 1 EACH TAB PO SCH (08:55)
--- NOTE | 2019-03-10 09:05 | P.PNOBGPC ---
Subjective - Subjective Principal diagnosis: Status post repeat section with tubal ligation POD #1 Interval history: Patient is doing well. She is an bleeding. She is urinating without difficulty. She is passing a small amount of flatus but no bowel movement yet. Her pain is fairly well controlled. She is bottle feeding. Patient reports: Reports appetite normal, Reports voiding normally, Reports pain well controlled, Reports ambulating normally [place]: doing well, bottle feeding Objective - Vital Signs Latest vital signs: Vital Signs Temp Pulse Resp BP Pulse Ox 03/10/19 06:00 16 03/10/19 04:00 98.2 F 73 14 125/74 97 03/10/19 02:00 16 03/10/19 00:00 98.1 F 97 14 110/53 97 03/09/19 21:51 14 03/09/19 20:00 98.4 F 72 14 115/57 96 03/09/19 16:26 98 03/09/19 16:15 98.3 F 64 16 110/65 03/09/19 14:26 16 03/09/19 12:00 97.8 F 88 16 113/64 03/09/19 11:26 16 98 03/09/19 11:05 80 16 111/56 03/09/19 10:35 97.4 F L 88 16 116/57 98 03/09/19 10:00 78 16 128/61 98 03/09/19 09:35 75 16 122/66 98 03/09/19 09:20 86 16 111/62 98 03/09/19 09:05 80 16 109/59 98 Intake and Output 03/09/19 03/10/19 03/10/19 22:59 06:59 14:59 Output Total 3900 1000 Balance -3900 -1000 Output: Urine 3900 1000 Uretheral (Boyd) 1600 Other: # Voids 1 1 - Exam Extremities: Present: normal. Absent: tenderness, edema Abdomen: Present: normal appearance, soft (Positive bowel sounds 4). Absent: distention, tenderness Incision: Present: normal, dry, intact. Absent: erythematous Uterus: Present: normal, firm. Absent: tenderness - Labs Labs: Abnormal Lab Results - Last 24 Hours (Table) 03/10/19 Range/Units 06:45 WBC 12.9 H (3.8-10.6) k/uL RBC 3.63 L (3.80-5.40) m/uL Hgb 10.8 L (11.4-16.0) gm/dL Hct 31.3 L (34.0-46.0) % Plt Count 144 L (150-450) k/uL Neutrophils # 10.6 H (1.3-7.7) k/uL Assessment and Plan Assessment: Status post repeat section with tubal ligation postoperative day #1 (1) 39 weeks gestation of Current Visit: No Status: Acute Code(s): Z3A.39 - 39 WEEKS GESTATION OF SNOMED Code(s): 65682940 (2) Previous delivery affecting Current Visit: No Status: Acute Code(s): O34.219 - MATERNAL CARE FOR UNSP TYPE SCAR FROM PREVIOUS DEL SNOMED Code(s): 563042594 (3) Family planning Current Visit: No Status: Acute Code(s): Z30.09 - ENCOUNTER FOR OTH GENERAL CNSL AND ADVICE ON CONTRACEPTION SNOMED Code(s): 739787339 Plan: Continue with postoperative care today. Anticipate discharge home tomorrow.
[2019-03-10] MEDS: HYDROcodone/APAP 7.5-325MG 1 EACH TAB PO PRN ×2 (14:03→23:06)
[2019-03-10] MEDS: SIMETHICONE 80 MG CHEWABLE PO PRN (19:10)
[2019-03-11] MEDS: IBUPROFEN 600 MG TAB PO PRN (04:28)
[2019-03-11 04:41] VITALS: TEMP 98.1
[2019-03-11] MEDS: SIMETHICONE 80 MG CHEWABLE PO PRN (04:59)
[2019-03-11] MEDS: SENNOSIDES-DOCUSATE SODIUM 1 EACH TAB PO SCH ×2 (07:40→09:28)
--- NOTE | 2019-03-11 09:05 | P.DS ---
Providers Date of admission: 03/09/19 06:01 Expected date of discharge: 03/11/19 Attending physician: Lisha Escudero Primary care physician: Lisha Escudero - Discharge Diagnosis(es) (1) 39 weeks gestation of Current Visit: No Status: Acute (2) Previous delivery affecting Current Visit: No Status: Acute (3) Family planning Current Visit: No Status: Acute Hospital Course: This is a 24-year-old female 2 para 1 who presented for scheduled repeat section with bilateral partial salpingectomy. She underwent the above- noted procedure on 03/09/2019 and delivered a viable male infant with scores of 9 at 1 minute and 9 at 5 minutes and infant weight of 7 lbs. 8 oz. Her course has been uncomplicated. Lochia is been decreasing. Her pain is been fairly well-controlled with ibuprofen and [place]. She is bottle feeding. She is passing flatus but no bowel movement yet. She is urinating without difficulty. Vital signs are stable. Abdomen is soft with positive bowel sounds 4. Incision is clean dry and intact with bebe in place. Extremities show negative [place]. Impression is status post repeat low transverse section with bilateral partial septectomy postoperative day #2. Plan is to discharge home today. [place] will be removed and sterile strips placed prior to discharge. She will be given a prescription for ibuprofen. She states she already has [place] at home from her last and does not require a prescription. She is advised follow-up in the office in 1 week for postoperative check and in 6 weeks for check. She is advised to call the office if she has any further questions or concerns prior to her appointment time. Procedures: Repeat low transverse section with bilateral partial's appendectomy on 03/09/2019 Patient Condition at Discharge: Stable Plan - Discharge Summary Discharge Rx Participant: No New Discharge Prescriptions: New Ibuprofen [Motrin] 600 mg PO Q6HR PRN #60 tab PRN Reason: Mild Pain Or Fever >= 100.5 Discharge Medication List Ibuprofen [Motrin] 600 mg PO Q6HR PRN #60 tab 03/11/19 [Rx] Follow up Appointment(s)/Referral(s): Lisha Escudero DO [Primary Care Provider] - 1 Week Activity/Diet/Wound Care/Special Instructions: Instructions 1. Do not begin any exercise program for 3 weeks. 2. Do not resume sexual relations for 3 weeks or longer if uncomfortable. 3. You may take tub baths or showers at any time. 4. You may use tampons if desired after 3 weeks. 5. Keep the area of episiotomy (stitches) clean and dry. 6. If you are not nursing, wear a good fitting, supportive bra during the day and limit fluid intake for at least 1 week to prevent breast engorgement. 7. Call the office, [phone], within the next week to make appointment for your 6 week checkup if it has not already been made. 8. Report any of the following occurrences to the doctor promptly: a. Heavy, excessive bleeding b. Chills, fever c. Burning or frequency of urination d. Pain or redness and breasts if nursing e. Increasing pain or swelling in episiotomy (stitches). In addition to the above instructions, the following additional should be followed: 1. No heavy lifting or straining (exercising) until after 6 week checkup. 2. Keep abdominal incision clean and dry: You may wear a dressing if more comfortable. 3. Make office appointment for 10 days after going home or as instructed by her doctor. Discharge Disposition: HOME SELF-CARE
[2019-03-11 09:32] VITALS: BP 114/67; PULSE 80; RESP 18
== END 2019-03-11 10:40 | disposition home or self-care (01) | DRG 785 ==
LOC: 4FBP 06:01
PROVIDERS: ADMIT Obstetrics & Gynecology; ATTEND Obstetrics & Gynecology
PROC: 0UB70ZZ Excision of Bilateral Fallopian Tubes, Open Approach (ICD-10-PCS; 2019-03-09)
PROC: 10D00Z1 Extraction of Products of Conception, Low, Open Approach (ICD-10-PCS; principal; 2019-03-09 08:00)
DX: O34.211 Maternal care for low transverse scar from previous cesarean delivery (principal); N85.8 Other specified noninflammatory disorders of uterus; Z37.0 Single live birth; Z3A.39 39 weeks gestation of pregnancy; Z30.2 Encounter for sterilization; L29.9 Pruritus, unspecified; Z79.899 Other long term (current) drug therapy; Z87.42 Personal history of other diseases of the female genital tract; Z87.891 Personal history of nicotine dependence
CPT/HCPCS: 85025; 86850; 86900; 86901; 88302

== ENCOUNTER 2021-03-14 10:46 | Observation (INO) | payer BC ==
[2021-03-14 11:21] LABS: Appearance,Urine Clear (Clear); Bilirubin,Urine Negative (Negative); Blood,Urine Negative (Negative); Color,Urine Yellow; Glucose,Urine (UA) Negative (Negative); Ketones,Urine 1+ (Negative); Leukocyte Esterase,Urine Negative (Negative); Nitrite,Urine Negative (Negative); Protein,Urine Negative (Negative); Urobilinogen,Urine <2.0 mg/dL (<2.0)
[2021-03-14] MEDS ORDERED: ONDANSETRON 4 MG/2 ML VIAL IVP STA (11:37)
[2021-03-14] MEDS ORDERED: MORPHINE SULFATE 4 MG/ML SYRINGE IV STA (11:37)
[2021-03-14 11:58] LABS: Basophils % (A) 0 %; Eosinophils # (A) 0.1 k/uL (0-0.7); Eosinophils % (A) 1 %; HCT 38.5 % (34.0-46.0); HGB 12.8 gm/dL (11.4-16.0); Lymphocytes # (A) 1.6 k/uL (1.0-4.8); Lymphocytes % (A) 19 %; MCH 30.4 pg (25.0-35.0); MCHC 33.2 g/dL (31.0-37.0); MCV 91.6 fL (80.0-100.0); Monocytes # (A) 0.4 k/uL (0-1.0); Monocytes % (A) 5 %; Neutrophils # (A) 6.2 k/uL (1.3-7.7); Neutrophils % (A) 75 %; Platelet Count 189 k/uL (150-450); RDW 11.9 % (11.5-15.5); WBC 8.3 k/uL (3.8-10.6)
--- NOTE | 2021-03-14 12:08 | ED ---
General Adult HPI - General Chief complaint: Abdominal Pain Stated complaint: abd pain Time Seen by Provider: 03/14/21 11:12 Source: patient, RN notes reviewed Mode of arrival: ambulatory Limitations: no limitations - History of Present Illness Initial comments: Patient is a 26-year-old female presented to the emergency room today with a chief complaint of pain to the right lower quadrant. Patient does admit that symptoms started yesterday around 3 afternoon. Patient does admit that she's felt nauseated. No vomiting. Patient does admit to history of ovarian cysts but states it feels different. She denies any other complaints or any other symptoms it's time. Patient denies any recent fever, chills, shortness of breath, chest pain, back pain, numbness or tingling, headaches or visual changes, or any other complaints. - Related Data Home Medications Medication Instructions Recorded Confirmed No Known Home Medications 03/14/21 03/14/21 Allergies Allergy/AdvReac Type Severity Reaction Status Date / Time No Known Allergies Allergy Verified 03/14/21 12:12 Review of Systems ROS Statement: Those systems with pertinent positive or pertinent negative responses have been documented in the HPI. ROS Other: All systems not noted in ROS Statement are negative. Past Medical History Past Medical History: No Reported History Additional Past Medical History / Comment(s): hx ovarian cysts History of Any Multi-Drug Resistant Organisms: None Reported Past Surgical History: Section Past Anesthesia/Blood Transfusion Reactions: No Reported Reaction Past Psychological History: No Psychological Hx Reported Smoking Status: Vaper Past Alcohol Use History: Occasional Past Drug Use History: None Reported - Past Family History Father Family Medical History: No Reported History General Exam - General Exam Comments Initial Comments: General: The patient is awake and alert, in no distress, and does not appear a cutely ill. Eye: extra-ocular movements are intact. There is normal conjunctiva bilaterally. No signs of icterus. Ears, nose, mouth and throat: There are moist mucous membranes and no oral lesions. Neck: The neck is supple, there is no tenderness or JVD. Respiratory: respirations are non-labored Gastrointestinal: Tender palpation right lower quadrant. No rebound, guarding. Admits soft on palpation. Musculoskeletal: Normal ROM, no tenderness. Strength 5/5. Sensation intact. Neurological: A&O x 3. CN II-XII intact, There are no obvious motor or sensory deficits. Coordination appears grossly intact. Speech is normal. Skin: Skin is warm and dry and no rashes or lesions are noted. Psychiatric: Cooperative, appropriate mood & affect, normal judgment. Limitations: no limitations Course Vital Signs 03/14/21 03/14/21 10:56 12:18 Temperature 98.3 F 98.6 F Pulse Rate 88 77 Respiratory 17 18 Rate Blood Pressure 138/89 123/86 O2 Sat by Pulse 97 98 Oximetry Medical Decision Making - Medical Decision Making Patient reexamined at this time still expressing discomfort in the right lower quadrant. Patient's CT and pelvis is reviewed and does show evidence of a dilated appendix. There is concern for early appendicitis. Case was discussed with surgeon video production specialist Dr. Agarwal who is reviewed imaging. Does recommend trying patient nothing by mouth and started on antibiotics. Patient's been updated is aware the plan states understanding. - Lab Data Result diagrams: 03/14/21 11:41 03/14/21 11:41 Lab Results 03/14/21 03/14/21 03/14/21 Range/Units 11:06 11:06 11:41 WBC (3.8-10.6) k/uL RBC (3.80-5.40) m/uL Hgb (11.4-16.0) gm/dL Hct (34.0-46.0) % MCV (80.0-100.0) fL MCH (25.0-35.0) pg MCHC (31.0-37.0) g/dL RDW (11.5-15.5) % Plt Count (150-450) k/uL MPV Neutrophils % % Lymphocytes % % Monocytes % % Eosinophils % % Basophils % % Neutrophils # (1.3-7.7) k/uL Lymphocytes # (1.0-4.8) k/uL Monocytes # (0-1.0) k/uL Eosinophils # (0-0.7) k/uL Basophils # (0-0.2) k/uL Sodium 137 (137-145) mmol/L Potassium 4.2 (3.5-5.1) mmol/L Chloride 106 (98-107) mmol/L Carbon Dioxide 22 (22-30) mmol/L Anion Gap 9 mmol/L BUN 11 (7-17) mg/dL Creatinine 0.67 (0.52-1.04) mg/dL Est GFR (CKD-EPI)AfAm >90 (>60 ml/min/1.73 sqM) Est GFR (CKD-EPI)NonAf >90 (>60 ml/min/1.73 sqM) Glucose 89 (74-99) mg/dL Calcium 9.4 (8.4-10.2) mg/dL Total Bilirubin 2.0 H (0.2-1.3) mg/dL AST 23 (14-36) U/L ALT 10 (4-34) U/L Alkaline Phosphatase 60 (38-126) U/L Total Protein 6.8 (6.3-8.2) g/dL Albumin 4.2 (3.5-5.0) g/dL Amylase 34 (30-110) U/L Lipase 12 L (23-300) U/L Urine Color Yellow Urine Appearance Clear (Clear) Urine pH 7.0 (5.0-8.0) Ur Specific Lynch 1.020 (1.001-1.035) Urine Protein Negative (Negative) Urine Glucose (UA) Negative (Negative) Urine Ketones 1+ H (Negative) Urine Blood Negative (Negative) Urine Nitrite Negative (Negative) Urine Bilirubin Negative (Negative) Urine Urobilinogen <2.0 (<2.0) mg/dL Ur Leukocyte Esterase Negative (Negative) Urine HCG, Qual Not Detected (Not Detectd) 03/14/21 Range/Units 11:41 WBC 8.3 (3.8-10.6) k/uL RBC 4.20 (3.80-5.40) m/uL Hgb 12.8 (11.4-16.0) gm/dL Hct 38.5 (34.0-46.0) % MCV 91.6 (80.0-100.0) fL MCH 30.4 (25.0-35.0) pg MCHC 33.2 (31.0-37.0) g/dL RDW 11.9 (11.5-15.5) % Plt Count 189 (150-450) k/uL MPV 8.0 Neutrophils % 75 % Lymphocytes % 19 % Monocytes % 5 % Eosinophils % 1 % Basophils % 0 % Neutrophils # 6.2 (1.3-7.7) k/uL Lymphocytes # 1.6 (1.0-4.8) k/uL Monocytes # 0.4 (0-1.0) k/uL Eosinophils # 0.1 (0-0.7) k/uL Basophils # 0.0 (0-0.2) k/uL Sodium (137-145) mmol/L Potassium (3.5-5.1) mmol/L Chloride (98-107) mmol/L Carbon Dioxide (22-30) mmol/L Anion Gap mmol/L BUN (7-17) mg/dL Creatinine (0.52-1.04) mg/dL Est GFR (CKD-EPI)AfAm (>60 ml/min/1.73 sqM) Est GFR (CKD-EPI)NonAf (>60 ml/min/1.73 sqM) Glucose (74-99) mg/dL Calcium (8.4-10.2) mg/dL Total Bilirubin (0.2-1.3) mg/dL AST (14-36) U/L ALT (4-34) U/L Alkaline Phosphatase (38-126) U/L Total Protein (6.3-8.2) g/dL Albumin (3.5-5.0) g/dL Amylase (30-110) U/L Lipase (23-300) U/L Urine Color Urine Appearance (Clear) Urine pH (5.0-8.0) Ur Specific Lynch (1.001-1.035) Urine Protein (Negative) Urine Glucose (UA) (Negative) Urine Ketones (Negative) Urine Blood (Negative) Urine Nitrite (Negative) Urine Bilirubin (Negative) Urine Urobilinogen (<2.0) mg/dL Ur Leukocyte Esterase (Negative) Urine HCG, Qual (Not Detectd) Disposition Clinical Impression: Acute appendicitis Disposition: ADMITTED IP TO THIS [facility] Condition: Stable Referrals: Phi Minor MD [Primary Care Provider] - 1-2 days Time of Disposition: 13:51
[2021-03-14 12:12] LABS: ALT 10 U/L (4-34); African American GFR (CKD) >90 (>60 ml/min/1.73 sqM); Albumin 4.2 g/dL (3.5-5.0); Amylase 34 U/L (30-110); Anion Gap 9 mmol/L; Blood Urea Nitrogen 11 mg/dL (7-17); Calcium 9.4 mg/dL (8.4-10.2); Carbon Dioxide 22 mmol/L (22-30); Chloride 106 mmol/L (98-107); Glucose 89 mg/dL (74-99); Lipase 12 U/L (23-300); Non-African American GFR(CKD) >90 (>60 ml/min/1.73 sqM); Sodium 137 mmol/L (137-145); Total Protein 6.8 g/dL (6.3-8.2)
[2021-03-14 12:30] LABS: AST 23 U/L (14-36); Alkaline Phosphatase 60 U/L (38-126); Potassium 4.2 mmol/L (3.5-5.1)
--- NOTE | 2021-03-14 13:22 | CT ---
EXAMINATION TYPE: CT abdomen pelvis w con DATE OF EXAM: 03/14/2021 COMPARISON: Ultrasound 07/19/2018 HISTORY: Abd pain CT DLP: 694.6 mGycm Automated exposure control for dose reduction was used. CONTRAST: CT scan of the abdomen pelvis is performed with IV Contrast, patient injected with 100 mL of Isovue 3 00. FINDINGS- LUNG BASES- No significant abnormality is appreciated. LIVER/GB- No gross abnormality is appreciated. PANCREAS- No gross abnormality is seen. SPLEEN- No gross abnormality is seen. ADRENALS- No gross abnormality is seen. KIDNEYS/BLADDER- no hydronephrosis nephrolithiasis or renal mass. BOWEL-bowel gas pattern is nonspecific. Appendix measures 7 mm and slightly dilated and there is a sm all amount of free fluid in the pelvis. I could not exclude early appendicitis. Correlate clinically. . LYMPH NODES- No greater than 1cm abdominal or pelvic lymph nodes are appreciated. Shotty adenopathy in the retroperitoneum and right lower quadrant mesentery. Single short axis node measuring 6 mm) per iaortic retroperitoneum axial image 37. OSSEOUS STRUCTURES- No significant abnormality is seen. OTHER- there appears to be a possible bicornuate uterus with free fluid in the pelvis. IMPRESSION- 1. Small amount of free fluid in the pelvis. The appendix measures 7 mm, slightly dilated. Early appe ndicitis could not be excluded although. Ruptured ovarian cyst or other etiology also within the diff erential diagnosis. 2. Correlate for a bicornuate uterus. 3. Shotty adenopathy in the retroperitoneum and within the mesentery with no pathologic sized lymph n odes.
[2021-03-14] MEDS ORDERED: AMPICILLIN-SULBACTAM 3 GM in SODIUM CHLORIDE 0.9% 100 ML IVPB STA (13:49)
[2021-03-14] MEDS ORDERED: NALOXONE 0.4 MG/ML 1 ML VIAL IV PRN (13:51)
[2021-03-14] MEDS ORDERED: ONDANSETRON 4 MG/2 ML VIAL ONE (14:13)
[2021-03-14] MEDS ORDERED: LACTATED RINGERS 1,000 ML IV ONE (14:32)
[2021-03-14] MEDS ORDERED: DEXAMETHASONE SOD PHOSPHATE 4 MG/ML 1 ML VIAL IVP ONE (14:44)
[2021-03-14] MEDS ORDERED: ONDANSETRON 4 MG/2 ML VIAL IVP ONE (14:44)
[2021-03-14] MEDS ORDERED: HEPARIN SODIUM,PORCINE 5,000 UNIT/ML 1 ML VIAL SQ ONE (14:57)
--- NOTE | 2021-03-14 15:02 | P.GSHP ---
History of Present Illness H&P Date: 03/14/21 Chief Complaint: Acute appendicitis 26-year-old female presents to the hospital with complaints of abdominal pain that began yesterday afternoon at 3:00. Some nausea but no vomiting. No history of similar events. No fevers. Pain in the right lower quadrant. CAT scan performed showing mild thickening of a slightly distended appendix. No inflammatory changes. White blood cell count was normal. - Review of Systems Comment: The patient denies any acute changes in vision or hearing, no dysphagia or odynophagia, no chest pain or shortness of breath, no dysuria or hematuria, no headache, no runny nose, no rectal bleeding or melena, no unexplained weight loss Past Medical History Past Medical History: No Reported History Additional Past Medical History / Comment(s): hx ovarian cysts History of Any Multi-Drug Resistant Organisms: None Reported Past Surgical History: Section Past Anesthesia/Blood Transfusion Reactions: No Reported Reaction Past Psychological History: No Psychological Hx Reported Smoking Status: Vaper Past Alcohol Use History: Occasional Past Drug Use History: None Reported - Past Family History Father Family Medical History: No Reported History Medications and Allergies Home Medications Medication Instructions Recorded Confirmed Type No Known Home Medications 03/14/21 03/14/21 History Allergies Allergy/AdvReac Type Severity Reaction Status Date / Time No Known Allergies Allergy Verified 03/14/21 12:12 Surgical - Exam Vital Signs Temp Pulse Resp BP Pulse Ox 98.3 F 88 17 138/89 97 03/14/21 10:56 03/14/21 10:56 03/14/21 10:56 03/14/21 10:56 03/14/21 10:56 Physical exam: General: Well-developed, well-nourished HEENT: Normocephalic, sclerae nonicteric Abdomen: Right lower quadrant tenderness, nondistended Extremities: No edema Neuro: Alert and oriented Results - Labs 03/14/21 11:41 03/14/21 11:41 Abnormal Lab Results - Last 24 Hours (Table) 03/14/21 03/14/21 Range/Units 11:06 11:41 Total Bilirubin 2.0 H (0.2-1.3) mg/dL Lipase 12 L (23-300) U/L Urine Ketones 1+ H (Negative) Diabetes panel 03/14/21 Range/Units 11:41 Sodium 137 (137-145) mmol/L Potassium 4.2 (3.5-5.1) mmol/L Chloride 106 (98-107) mmol/L Carbon Dioxide 22 (22-30) mmol/L BUN 11 (7-17) mg/dL Creatinine 0.67 (0.52-1.04) mg/dL Glucose 89 (74-99) mg/dL Calcium 9.4 (8.4-10.2) mg/dL AST 23 (14-36) U/L ALT 10 (4-34) U/L Alkaline Phosphatase 60 (38-126) U/L Total Protein 6.8 (6.3-8.2) g/dL Albumin 4.2 (3.5-5.0) g/dL Calcium panel 03/14/21 Range/Units 11:41 Calcium 9.4 (8.4-10.2) mg/dL Albumin 4.2 (3.5-5.0) g/dL Pituitary panel 03/14/21 Range/Units 11:41 Sodium 137 (137-145) mmol/L Potassium 4.2 (3.5-5.1) mmol/L Chloride 106 (98-107) mmol/L Carbon Dioxide 22 (22-30) mmol/L BUN 11 (7-17) mg/dL Creatinine 0.67 (0.52-1.04) mg/dL Glucose 89 (74-99) mg/dL Calcium 9.4 (8.4-10.2) mg/dL Adrenal panel 03/14/21 Range/Units 11:41 Sodium 137 (137-145) mmol/L Potassium 4.2 (3.5-5.1) mmol/L Chloride 106 (98-107) mmol/L Carbon Dioxide 22 (22-30) mmol/L BUN 11 (7-17) mg/dL Creatinine 0.67 (0.52-1.04) mg/dL Glucose 89 (74-99) mg/dL Calcium 9.4 (8.4-10.2) mg/dL Total Bilirubin 2.0 H (0.2-1.3) mg/dL AST 23 (14-36) U/L ALT 10 (4-34) U/L Alkaline Phosphatase 60 (38-126) U/L Total Protein 6.8 (6.3-8.2) g/dL Albumin 4.2 (3.5-5.0) g/dL Assessment and Plan (1) Acute appendicitis Narrative/Plan: 26-year-old female with CAT scan and history consistent with mild acute appen dicitis. Clinical scenario reviewed with patient and family. Will proceed with laparoscopic, possible open appendectomy at this time. Risks of bleeding, infection, scarring, abscess, hernia, bladder bowel and ureteral damage, findings of normal appendix, conversion to an open procedure reviewed. She understands and wishes to proceed. Current Visit: Yes Status: Acute Code(s): K35.80 - UNSPECIFIED ACUTE APPENDICITIS SNOMED Code(s): 44716939
[2021-03-14] MEDS ORDERED: LIDOCAINE 1% INJ 10MG/ML (20 ML MDV) ONE (15:13)
[2021-03-14] MEDS ORDERED: fentaNYL (PF) 50 MCG/ML 2 ML AMP ONE (15:13)
[2021-03-14] MEDS ORDERED: GLYCOPYRROLATE 0.2 MG/ML 2 ML VIAL ONE (15:13)
[2021-03-14] MEDS ORDERED: PROPOFOL 10 MG/ML 20 ML VIAL IV ONE (15:13)
[2021-03-14] MEDS ORDERED: SUCCINYLCHOLINE CHLORIDE 100 MG/5 ML SYR IV ONE (15:13)
[2021-03-14] MEDS ORDERED: ROCURONIUM 10 MG/ML (5 ML VIAL) IV ONE (15:13)
[2021-03-14] MEDS ORDERED: NEOSTIGMINE 1 MG/ML 10 ML VIAL ONE (15:13)
[2021-03-14] MEDS ORDERED: MIDAZOLAM 2 MG/2 ML VIAL ONE (15:13)
[2021-03-14] MEDS ORDERED: BUPIVACAINE (PF) 0.25% 30 ML VIAL SQ ONE (15:40)
[2021-03-14] MEDS ORDERED: diphenhydrAMINE 50 MG/ML 1 ML VIAL IVP ONE (16:18)
[2021-03-14] MEDS ORDERED: diphenhydrAMINE 50 MG/ML 1 ML VIAL ONE (16:19)
[2021-03-14] MEDS: HYDROmorphone 0.5 MG/0.5 ML SYRINGE IVP PRN ×2 (16:22→20:45)
[2021-03-14] MEDS ORDERED: ONDANSETRON 4 MG/2 ML VIAL IVP PRN (17:33)
[2021-03-14] MEDS ORDERED: HYDROmorphone 0.5 MG/0.5 ML SYRINGE IVP PRN (17:33)
[2021-03-14] MEDS ORDERED: HYDROcodone/APAP 5-325MG 1 EACH TAB PO PRN (17:33)
--- NOTE | 2021-03-14 17:37 | P.OP ---
Date of Procedure: 03/14/21 Procedure(s) Performed: PREOPERATIVE DIAGNOSIS: Acute appendicitis POSTOPERATIVE DIAGNOSIS: Same PROCEDURE: Laparoscopic appendectomy SURGEON: Any EBL: 5 cc ANESTHESIA: General COMPLICATIONS: None OPERATIVE PROCEDURE: The patient was brought and placed on the operating table in the supine position. The patient was placed under general anesthesia. The abdomen was prepped and draped in the usual sterile fashion. A small vertical infraumbilical incision was made. The fascia was retracted anteriorly with Cole forceps. The Veress needle was advanced into the perineal cavity. The saline drop test was normal. Insufflation took place to 15 mmHg. A 5 mm trocar was then placed. An additional 5 mm suprapubic trocar was placed under direct visualization as well as a 12 mm left lower quadrant trocar under direct visualization. The appendix was inspected. It was acutely inflamed. There was some serous fluid in the pelvis. The patient's right ovary demonstrated evidence of recent follicular cyst rupture. The mesoappendix was dissected. The base of the appendix was divided using a linear 45 mm intestinal stapler. The mesentery itself was Divided using the LigaSure. A clip was also placed on a larger vessel. The area was then irrigated. No further purulence or bleeding was seen. The appendix was brought out of the peritoneal cavity through the left lower quadrant trocar site Within the trocar. The fascia at the 12 mm site was closed using a [id number] 0 Vicryl stitch. The skin at all 3 sites was closed using 4-0 Monocryl sutures. Skin glue was then applied. DISPOSITION: Stable to recovery room
[2021-03-14] MEDS: KETOROLAC 15 MG/ML 1 ML VIAL IVP SCH ×3 (17:57→23:30)
[2021-03-14] MEDS: AMPICILLIN-SULBACTAM 3 GM in SODIUM CHLORIDE 0.9% 100 ML IVPB SCH (20:46)
[2021-03-14] MEDS: HEPARIN SODIUM,PORCINE/PF 5,000 UNIT/0.5 ML SYRINGE SQ SCH (23:13)
[2021-03-15] MEDS ORDERED: LACTATED RINGERS 1,000 ML IV SCH (05:00)
[2021-03-15] MEDS: AMPICILLIN-SULBACTAM 3 GM in SODIUM CHLORIDE 0.9% 100 ML IVPB SCH ×2 (05:45→13:41)
[2021-03-15] MEDS: KETOROLAC 15 MG/ML 1 ML VIAL IVP SCH ×2 (06:03→12:28)
[2021-03-15 08:02] LABS: African American GFR (CKD) >90 (>60 ml/min/1.73 sqM); Anion Gap 4 mmol/L; Blood Urea Nitrogen 6 mg/dL (7-17); Calcium 8.9 mg/dL (8.4-10.2); Carbon Dioxide 24 mmol/L (22-30); Chloride 108 mmol/L (98-107); Glucose 98 mg/dL (74-99); Non-African American GFR(CKD) >90 (>60 ml/min/1.73 sqM); Potassium 3.8 mmol/L (3.5-5.1); Sodium 136 mmol/L (137-145)
[2021-03-15] MEDS ORDERED: PANTOPRAZOLE 40 MG/10 ML VIAL IV SCH (09:00)
[2021-03-15 09:18] VITALS: RESP 16; TEMP 98.2
[2021-03-15] MEDS: HEPARIN SODIUM,PORCINE/PF 5,000 UNIT/0.5 ML SYRINGE SQ SCH (09:22)
[2021-03-15 10:19] LABS: T4, Free (Free Thyroxine) 1.34 ng/dL (0.78-2.19)
[2021-03-15] MEDS ORDERED: ACETAMINOPHEN TAB 325 MG TAB PO PRN (10:50)
[2021-03-15 11:21] VITALS: BP 118/69; PULSE 70
--- NOTE | 2021-03-15 11:45 | P.CRDCN ---
History of Present Illness History of present illness: HISTORY OF PRESENTING ILLNESS This is a pleasant 26-year-old female with no significant past medical history. She denies prior history of coronary artery disease, bradycardia or a rrhythmia and does not follow in the office with a radiosonde specialist. We have been asked to see in consultation for bradycardia. She presented to the hospital yesterday with symptoms of abdominal pain and was found to have acute appendix. She underwent laparoscopic appendectomy with Dr. Agarwal. Apparently in the postoperative phase she was noted to have a heart rate in the 46-48 range. There is no documentation per telemetry tracings of this rhythm. According to the patient this occurred almost immediately postoperatively and she was feeling somewhat "funny" at the time. She does not recall having any specific dizziness. She denies chest pain, shortness of breath or palpitations. She states she has never had any issues in the past with an arrhythmia. She has never passed out. EKG obtained in recovery revealed SR with frequent PVCs. Telemetry tracings overnight reveal sinus rhythm heart rate in the 60s to 70s. No significant arrhythmia or pauses noted. Laboratory data reviewed, CBC unremarkable, sodium 136, potassium 3.8, creatinine 0.57 and TSH 0.373. She takes no daily medications. REVIEW OF SYSTEMS At the time of my exam: CONSTITUTIONAL: Denies fever or chills. CARDIOVASCULAR: Denies chest pain, shortness of breath, orthopnea, PND or palpitations. RESPIRATORY: Denies cough. GASTROINTESTINAL: Complains of surgical site discomfort. Denies abdominal pain, diarrhea, constipation, nausea or vomiting. MUSCULOSKELETAL: Denies myalgias. NEUROLOGIC: Denies numbness, tingling, headache or weakness. ENDOCRINE: Denies fatigue, weight change, polydipsia or polyurina. GENITOURINARY: Denies burning, hematuria or urgency with micturation. HEMATOLOGIC: Denies history of anemia or bleeding. PHYSICAL EXAMINATION Blood pressure 110/69 heart rate 63 afebrile and maintaining oxygen saturation on room air. CONSTITUTIONAL: No apparent distress. HEENT: Head is normocephalic. Pupils are equal, round. Sclerae anicteric. Mucous membranes of the mouth are moist. No JVD. No carotid bruit. CHEST EXAMINATION: Lungs are clear to auscultation. No chest wall tenderness is noted on palpation or with deep breathing. HEART EXAMINATION: Regular rate and rhythm. S1, S2 heard. No murmurs, gallops or rub. ABDOMEN: Soft, nontender. EXTREMITIES: 2+ peripheral pulses, no lower extremity edema and no calf tenderness. NEUROLOGIC EXAMINATION: Patient is awake, alert and oriented x3. ASSESSMENT Acute appendicitis Bradycardia PLAN Obtain 2D echocardiogram and doppler study to assess cardiac structure and function. If echo is normal she can be discharged from a cardiac perspective. Thank you kindly for this consultation. Nurse Practitioner note has been reviewed, I agree with a documented findings and plan of care. Patient was seen and examined. Past Medical History Past Medical History: No Reported History Additional Past Medical History / Comment(s): hx ovarian cysts History of Any Multi-Drug Resistant Organisms: None Reported Past Surgical History: Section Additional Past Surgical History / Comment(s): tubal ligation Past Anesthesia/Blood Transfusion Reactions: No Reported Reaction Past Psychological History: No Psychological Hx Reported Smoking Status: Vaper Past Alcohol Use History: Occasional Additional Past Alcohol Use History / Comment(s): quit smoking when found out , smoked less than 1ppd. vapes daily approx 10 times per hour Past Drug Use History: None Reported - Past Family History Father Family Medical History: No Reported History Medications and Allergies Home Medications Medication Instructions Recorded Confirmed Type No Known Home Medications 03/14/21 03/14/21 History Allergies Allergy/AdvReac Type Severity Reaction Status Date / Time No Known Allergies Allergy Verified 03/14/21 17:34 Physical Exam Vitals: Vital Signs Temp Pulse Pulse Pulse Pulse Pulse Resp 03/15/21 08:10 98.2 F 63 16 03/15/21 03:33 98.4 F 61 14 03/14/21 23:28 98.2 F 61 16 03/14/21 20:00 75 14 03/14/21 19:22 77 16 03/14/21 18:48 46 L 03/14/21 18:17 82 03/14/21 18:10 48 L 03/14/21 18:08 65 03/14/21 17:50 98.3 F 72 03/14/21 17:33 72 03/14/21 17:18 69 03/14/21 17:04 64 03/14/21 16:47 64 03/14/21 16:33 66 03/14/21 16:24 68 03/14/21 16:09 97.8 F 86 14 03/14/21 14:28 97.8 F 72 18 03/14/21 14:10 98.5 F 93 18 03/14/21 12:18 98.6 F 77 18 03/14/21 10:56 98.3 F 88 17 BP BP BP Pulse Ox 03/15/21 08:10 110/69 97 03/15/21 03:33 105/63 95 03/14/21 23:28 113/61 98 03/14/21 20:00 119/74 95 03/14/21 19:22 111/76 95 03/14/21 18:48 117/72 96 03/14/21 18:17 120/81 97 03/14/21 18:10 03/14/21 18:08 125/84 95 03/14/21 17:50 117/78 95 03/14/21 17:33 120/83 95 03/14/21 17:18 124/81 98 03/14/21 17:04 124/71 95 03/14/21 16:47 123/73 95 03/14/21 16:33 117/72 95 03/14/21 16:24 122/75 95 03/14/21 16:09 128/84 100 03/14/21 14:28 137/78 98 03/14/21 14:10 127/96 97 03/14/21 12:18 123/86 98 03/14/21 10:56 138/89 97 Intake and Output 03/14/21 03/15/21 03/15/21 22:59 06:59 14:59 Intake Total 1595 Output Total 205 Balance 1390 Intake: IV 875 Oral 720 Output: Urine 200 Estimated Blood Loss 5 Other: Voiding Method Toilet Toilet # Voids 1 Weight 68.039 kg 71.3 kg Results 03/14/21 11:41 03/15/21 07:25 Cardiac Enzymes 03/14/21 Range/Units 11:41 AST 23 (14-36) U/L CBC 03/14/21 Range/Units 11:41 WBC 8.3 (3.8-10.6) k/uL RBC 4.20 (3.80-5.40) m/uL Hgb 12.8 (11.4-16.0) gm/dL Hct 38.5 (34.0-46.0) % Plt Count 189 (150-450) k/uL Comprehensive Metabolic Panel 03/14/21 03/15/21 Range/Units 11:41 07:25 Sodium 137 136 L (137-145) mmol/L Potassium 4.2 3.8 (3.5-5.1) mmol/L Chloride 106 108 H (98-107) mmol/L Carbon Dioxide 22 24 (22-30) mmol/L BUN 11 6 L (7-17) mg/dL Creatinine 0.67 0.57 (0.52-1.04) mg/dL Glucose 89 98 (74-99) mg/dL Calcium 9.4 8.9 (8.4-10.2) mg/dL AST 23 (14-36) U/L ALT 10 (4-34) U/L Alkaline Phosphatase 60 (38-126) U/L Total Protein 6.8 (6.3-8.2) g/dL Albumin 4.2 (3.5-5.0) g/dL Current Medications Generic Name Dose Route Start Last Admin Trade Name Freq PRN Reason Stop Dose Admin Hydrocodone Bitart/Acetaminophen 1 each 03/14/21 17:33 Hydrocodone/Apap 5-325mg 1 Each Tab PO Q4HR PRN Mild Pain Heparin Sodium (Porcine) 5,000 unit 03/15/21 00:00 03/15/21 09:22 Heparin Sodium,Porcine/Pf 5,000 Unit/0.5 Ml Syringe SQ 5,000 unit Q8HR DANDRE Administration Hydromorphone HCl 0.5 mg 03/15/21 07:00 03/14/21 20:45 Hydromorphone 0.5 Mg/0.5 Ml Syringe IVP 03/15/21 23:00 0.5 mg Q5M PRN Administration Pain Control Hydromorphone HCl 0.5 mg 03/14/21 17:33 Hydromorphone 0.5 Mg/0.5 Ml Syringe IVP Q3HR PRN Moderate to Severe Pain Lactated Ringer's 1,000 mls @ 20 mls/hr 03/15/21 05:00 03/14/21 16:24 Lactated Ringers IV 0 mls .Q24H DANDRE Administration Ampicillin Sodium/Sulbactam 100 mls @ 200 mls/hr 03/14/21 22:00 03/15/21 05:45 Sodium 3 gm/ Sodium Chloride IVPB 200 mls/hr Q8H DANDRE Administration Ketorolac Tromethamine 15 mg 03/14/21 18:00 03/15/21 06:03 Ketorolac 15 Mg/Ml 1 Ml Vial IVP 03/16/21 12:01 15 mg Q6HR DANDRE Administration Naloxone HCl 0.2 mg 03/14/21 13:51 Naloxone 0.4 Mg/Ml 1 Ml Vial IV Q2M PRN Opioid Reversal Ondansetron HCl 4 mg 03/14/21 17:33 Ondansetron 4 Mg/2 Ml Vial IVP Q6HR PRN Nausea And Vomiting Pantoprazole Sodium 40 mg 03/15/21 09:00 03/15/21 09:23 Pantoprazole 40 Mg/10 Ml Vial IV 40 mg DAILY DANDRE Administration Intake and Output 03/14/21 03/15/21 03/15/21 22:59 06:59 14:59 Intake Total 1595 Output Total 205 Balance 1390 Intake: IV 875 Oral 720 Output: Urine 200 Estimated Blood Loss 5 Other: Voiding Method Toilet Toilet # Voids 1 Weight 68.039 kg 71.3 kg 03/14/21 11:41 03/15/21 07:25
--- NOTE | 2021-03-15 14:58 | P.DS ---
Providers Date of admission: 03/14/21 13:57 Expected date of discharge: 03/15/21 Attending physician: Everett Agarwal Consults: 03/14/21 18:30 Consult Physician Routine Consulting Provider: Greg Shaver Consult Reason/Comments: low irregular heart rate post op Do you want consulting provider notified?: Yes Primary care physician: Phi Minor Hospital Course: Discharge diagnosis 1. Acute appendicitis status post laparoscopic appendectomy Hospital course 26-year-old female presents to the hospital with complaints of abdominal pain that began yesterday afternoon at 3:00. Some nausea but no vomiting. No history of similar events. No fevers. Pain in the right lower quadrant. CAT scan performed showing mild thickening of a slightly distended appendix. No inflammatory changes. White blood cell count was normal. Patient is status post laparoscopic appendectomy for acute appendicitis. Postoperatively patient had some bradycardia and did require transfer to cardiac floor. She's been seen evaluated by cardiology. Bradycardia is resolved. Per cardiology her echo is normal and patient can be discharge. Bradycardia may have been related to pain medication anesthesia. Patient's symptoms have improved. She is tolerating diet. Her pain is controlled. She is up and ambulating. She is having flatus. She is stable for discharge. Please refer to chart for any further details. Physician Crnp note has been reviewed by physician. Signing provider agrees with the documented findings, assessment, and plan of care. Patient Condition at Discharge: Stable Plan - Discharge Summary Discharge Rx Participant: No New Discharge Prescriptions: New Ibuprofen [Motrin] 600 mg PO Q8HR PRN #30 tab PRN Reason: Pain Acetaminophen Tab [Tylenol Tab] 650 mg PO Q4H PRN #30 tablet PRN Reason: Pain Discharge Medication List Acetaminophen Tab [Tylenol Tab] 650 mg PO Q4H PRN #30 tablet 03/15/21 [Rx] Ibuprofen [Motrin] 600 mg PO Q8HR PRN #30 tab 03/15/21 [Rx] Follow up Appointment(s)/Referral(s): Driss Juan MD [STAFF PHYSICIAN] - 2 Weeks Phi Minor MD [Primary Care Provider] - 1-2 days Everett Agarwal MD [Medical Doctor] - 1 Week Activity/Diet/Wound Care/Special Instructions: No lifting over 10 pounds You may shower. No soaking or tub baths for 2 weeks Very light activity until you are reevaluated at your follow up appointment with your surgeon Discharge Disposition: HOME SELF-CARE
--- NOTE | 2021-03-16 11:31 | ECHOF ---
Referral Reason:pvs MEASUREMENTS -------- HEIGHT: 160.0 cm WEIGHT: 71.2 kg BP: RVIDd: 2.4 cm (< 3.3) IVSd: 0.9 cm (0.6 - 1.1) LVIDd: 4.6 cm (3.9 - 5.3) LVPWd: 0.8 cm (0.6 - 1.1) IVSs: 1.0 cm LVIDs: 3.1 cm LVPWs: 1.2 cm LA Diam: 3.0 cm (2.7 - 3.8) Ao Diam: 2.9 cm (2.0 - 3.7) AV Cusp: 1.7 cm (1.5 - 2.6) LA Diam: 3.0 cm (2.7 - 3.8) MV EXCURSION: 18.829 mm (> 18.000) MV EF SLOPE: 116 mm/s (70 - 150) EPSS: 0.5 cm MV E Eduardo: 0.78 m/s MV DecT: 179 ms MV A Eduardo: 0.58 m/s MV E/A Ratio: 1.34 RAP: 5.00 mmHg RVSP: 14.95 mmHg FINDINGS -------- Sinus rhythm. This was a technically adequate study. LV size, wall thickness and systolic function are normal, with an EF greater than 55%. The left brett tricular size is normal. The right ventricle is normal in size. The left atrial size is normal. The right atrial size is normal. The aortic valve is trileaflet, and appears structurally normal. No aortic stenosis or regurgitation. The mitral valve is normal. There is trace to mild mitral regurgitation. The tricuspid valve appears structurally normal. Mild tricuspid regurgitation present. Right vent ricular systolic pressure is normal at < 35 mmHg. Trace/mild (physiologic) pulmonic regurgitation. The aortic root size is normal. There is no pericardial effusion. CONCLUSIONS -------- 1. LV size, wall thickness and systolic function are normal, with an EF greater than 55%. 2. The left atrial size is normal. 3. The aortic valve is trileaflet, and appears structurally normal. No aortic stenosis or regurgitati on. 4. There is trace to mild mitral regurgitation. 5. Mild tricuspid regurgitation present. 6. There is no pericardial effusion. INDEPENDENT INSURANCE ADJUSTER: Vijaya Gibbs RDCS
== END 2021-03-15 16:02 | disposition home or self-care (01) ==
LOC: EC 10:46 → 6PED 13:57 → 3SCARD 20:16
PROVIDERS: ADMIT Surgery; ATTEND Surgery
DX: K35.80 Unspecified acute appendicitis (principal); R00.1 Bradycardia, unspecified; I49.3 Ventricular premature depolarization; I08.1 Rheumatic disorders of both mitral and tricuspid valves; N83.01 Follicular cyst of right ovary; F17.290 Nicotine dependence, other tobacco product, uncomplicated; Z20.822 Contact with and (suspected) exposure to COVID-19; Z98.891 History of uterine scar from previous surgery; Z87.42 Personal history of other diseases of the female genital tract
CPT/HCPCS: 96374; 96375; 99285; 36415; 93306; 93005; 81025 ×2; 84439; 88304; 80053; 80048; 84443; 82150; 83690; 85025; 81003; 87040; 87635; 74177; 44970; G0378 ×3; J2250; J2270; J1200; J1644 ×3; J1100; J2710; J2405; J2001; J3010; J0295 ×2; J1885 ×2; J0330; J2704; C9113; J1170; Q9967